=== PATIENT | male | born 1950 | race Caucasian/White ===

== ENCOUNTER → 2016-05-14 | Outpatient (CLI) | payer OTHER ==
[~2016-05-14] MED LIST: ALLER-EASE180 MG PO; AMLODIPINE BESY10 MG PO; ASPIRIN EC81 M1 PO; ATORVASTATIN CA40 MG PO; CARVEDILOL12.5 MG PO; COUMADIN 3 MG TA3 M1 PO; COZAAR 50 MG TA50 M2 PO; CYCLOBENZAPRINE10 MG PO; FISH OIL 1,0001 EAC5 PO; LASIX 40 MG TAB40 M1 PO; POTASSIUM CHLO20 ME1 PO; PRAVACHOL 20 MG20 M1 PO; TRAMADOL 50 MG50 MG PO; TYLENOL325 MG PO
== END ==
LOC: NUC 06:56 → RAD 06:56 → NUC 07:32
DX: I25.10 Atherosclerotic heart disease of native coronary artery without angina pectoris (principal); I42.9 Cardiomyopathy, unspecified

== ENCOUNTER → 2016-05-29 | Outpatient (CLI) | payer OTHER ==
[~2016-05-29] VITALS: Ht 177.8 cm; Wt 104.3 kg
[~2016-05-29] MED LIST changes: +CLARITIN10 MG PO; +COREG25 MG PO; +PACERONE 200 M200 M1 PO; +PULMICORT0.5 MG/22 INH
--- NOTE | ~2016-05-29 | CATHLAB ---
[facility] [employer] [place] [address] INVASIVE PROCEDURE REPORT Name: ALMA MERCEDES Room #: REG [facility]#: [id number] Admission: 05/29/16 Attend Phys: Pablo Darby MD Discharge: Date of : 54 Date of Service: 05/29/16 0846 Report #: [id number] THIS REPORT FOR: //name// CC: Pablo Garcia DATE OF SERVICE: 05/29/2016 INDICATIONS: Ventricular tachycardia/cardiomyopathy Full risks, benefits and alternatives of cardiac catheterization were explained to the patient. All questions were answered. Informed consent was obtained. The right groin area was prepped and draped in a sterile manner. Lidocaine was given subcutaneously. A 4-Citizen Of [place] sheath was inserted into the right femoral artery via modified Seldinger technique. CORONARY ANATOMY: 1. The left main artery is a large caliber vessel, with no flow-limiting lesions. 2. The LAD is a moderate to large size caliber vessel, traveling down the anterior wall and wrapping around the apex. There is only mild disease in the proximal segment, less than 20%. 3. There are 2 diagonal arteries, with no flow-limiting lesions. 4. The left circumflex artery is a moderate sized caliber vessel with mild disease in the mid segment, less than 20%. 5. There are 2 moderate sized obtuse marginal arteries, with no flow-limiting lesions. 6. The RCA is a dominant vessel, with a 100% occlusion in the proximal segment. This is unchanged from prior procedures. The distal RCA is filled via collateral circulation from the left coronary artery. 7. A left ventriculogram was performed revealing a dilated left ventricle with severe LV dysfunction, EF around 30-35%. There is severe hypokinesis of the inferior and apical regions. The LVEDP is 33 mmHg. There is no gradient across the outflow tract. IMPRESSION: 1. 100% occlusion of the right coronary artery with distal collaterals. Unchanged from prior procedures. 2. Mild disease in the left anterior descending and left circumflex artery. 3. Severe left ventricular dysfunction. 4. Continue with medical therapy. <ELECTRONICALLY SIGNED> By: Pablo Darby MD 05/30/16 0940 0846 1035 Pablo Darby MD /nt
[2016-05-29 07:12] VITALS: BP 128/67
[2016-05-29 07:42] LABS: HEMATOCRIT 40.7 % (42.0-52.0); HEMOGLOBIN 13.4 gm/dL (14.0-18.0); MCH 30.4 pg (26.0-34.0); MCHC 32.9 g/dL (28.0-37.0); MCV 92.5 fL (80.0-100.0); RBC 4.4 mil/uL (4.50-6.00); RDW 13.8 % (10.5-14.5); WBC 6.6 thou/uL (4.0-11.0)
[2016-05-29 07:50] LABS: CALCIUM 8.5 mg/dL (8.5-10.1); CREATININE 1.4 mg/dL (0.7-1.3); POTASSIUM 4.9 mmol/L (3.5-5.1)
[2016-05-29 08:03] LABS: INR 1.4; PROTIME 13.8 Seconds (9.3-11.4)
== END | disposition home or self-care (01) ==
LOC: CATH 06:25 → SPEC 12:56 → CATH 12:57
PROVIDERS: Internal Medicine Cardiovascular Disease
DX: I25.10 Atherosclerotic heart disease of native coronary artery without angina pectoris (principal); I25.5 Ischemic cardiomyopathy; I10 Essential (primary) hypertension; E78.5 Hyperlipidemia, unspecified; I25.2 Old myocardial infarction; I48.91 Unspecified atrial fibrillation; Z87.891 Personal history of nicotine dependence

== ENCOUNTER → 2016-12-25 | Outpatient (CLI) | payer OTHER | LOC: RAD 12:51 | DX: I51.7 Cardiomegaly (principal) ==

== ENCOUNTER → 2017-03-12 | Outpatient (CLI) | payer OTHER | LOC: ULTRA 08:16 | DX: K80.80 Other cholelithiasis without obstruction (principal); R94.5 Abnormal results of liver function studies; K76.0 Fatty (change of) liver, not elsewhere classified ==

== ENCOUNTER → 2017-09-09 | Outpatient (CLI) | payer OTHER ==
--- NOTE | ~2017-09-09 | 2DMMODE ---
[facility] [place] [address] 2 D/M-MODE ECHOCARDIOGRAM Name: ALMA MERCEDES Room #: REG [facility]#: [id number] Admission: 09/09/17 Attend Phys: Pablo Darby MD Discharge: Date of : 54 Date of Service: 09/09/17 1616 Report #: [id number] THIS REPORT FOR: //name// APPROVED REPORT Study performed: 09/09/2017 14:49:28 EXAM: Comprehensive 2D, Doppler, and color-flow Echocardiogram Patient Location: Out-Patient Status: routine BSA: 2.21 HR: 40 bpm BP: 172/92 mmHg Rhythm: Bradycardia Other Information Study Quality: Adequate Indications Ischemic cardiomyopathy. CAD, stents, pacemaker, HTN, HLP 2D Dimensions RVDd: 41.49 mm LVEF(%): 41.21 (>50%) IVSd: 10.74 (7-11mm) LVOT Diam: 24.46 (18-24mm) LVDd: 63.59 mm PWd: 10.86 (7-11mm) Ascending Ao: 35.87 (22-36mm) LVDs: 50.46 (25-40mm) Aortic Root: 36.24 mm Juarez's LVEF: 41.21 % Volumes Left Atrial Volume (Systole) Single Plane 4CH: 91.03 mL Single Plane 2CH: 116.67 mL LA ESV Index: 49.00 mL/m2 Aortic Valve AoV Peak Mino.: 1.65 m/s AO Peak Gr.: 10.95 mmHg LVOT Max P.85 mmHg LVOT Max V: 0.84 m/s KERWIN Vmax: 2.40 cm2 Mitral Valve E/A Ratio: 1.6 MV Decel. Time: 124.93 ms [facility] [place] [address] 2 D/M-MODE ECHOCARDIOGRAM Name: ALMA MERCEDES Room #: [facility]#: [id number] Admission: 09/09/17 Attend Phys: Pablo Darby MD Discharge: Date of : 54 Date of Service: 09/09/17 1616 Report #: [id number] MV E Max Mino.: 0.94 m/s MV A Mino.: 0.60 m/s MV PHT: 36.23 ms IVRT: 103.81 ms Pulmonary Valve PV Peak Mino.: 1.37 m/s PV Peak Gr.: 7.47 mmHg Pulmonary Vein P Vein S: 0.52 m/s P Vein D: 0.60 m/s P Vein S/D Ratio: 0.87 Tricuspid Valve TR Peak Mino.: 2.93 m/s RAP Estimate: 5.00 mmHg TR Peak Gr.: 34.31 mmHg PA Pressure: 39.00 mmHg Left Ventricle Left ventricle is mildly dilated. There is normal left ventricular wall thickness. Left ventricular systolic function is moderate to severely decreased. LVEF is 35%. Moderate diastolic dysfunction is present (pseudonormal filling). Right Ventricle Right ventricle is at the upper limits of normal. The right ventricular systolic function is normal. Pacemaker lead is present in the right ventricle. Atria Left atrium moderate to severely dilated. Right atrium is mildly dilated. Aortic Valve The Aortic valve is mildly sclerotic. Mild aortic regurgitation. There is no aortic valvular stenosis. Mitral Valve Mitral valve leaflets are mildly thickened. Moderate to severe mitral regurgitation Tricuspid Valve The tricuspid valve is normal in structure. Mild to moderate tricuspid regurgitation. Estimated PAP is 40mmHg. Pulmonic Valve [facility] [address] [place] [address] 2 D/M-MODE ECHOCARDIOGRAM Name: DARENALMA GAINES Room #: REG [facility].#: [id number] Admission: 09/09/17 Attend Phys: Pablo Darby MD Discharge: Date of : 54 Date of Service: 09/09/17 1616 Report #: [id number] The pulmonary valve is normal in structure. Trace pulmonic regurgitation. Great Vessels The aortic root is normal in size. The ascending aorta is normal in size. IVC is normal in size and collapses >50% with inspiration. Pericardium There is no pericardial effusion. <Conclusion> Left ventricle is mildly dilated. Left ventricular systolic function is moderate to severely decreased. Moderate diastolic dysfunction is present (pseudonormal filling). Right ventricle is at the upper limits of normal. Left atrium moderate to severely dilated. Mild aortic regurgitation. Moderate to severe mitral regurgitation Mild to moderate tricuspid regurgitation. Estimated PAP is 40mmHg. <ELECTRONICALLY SIGNED> By: Pablo Darby MD 09/09/17 1616 161 161 Pablo Darby MD /INF
== END ==
LOC: CV 10:59
DX: I08.3 Combined rheumatic disorders of mitral, aortic and tricuspid valves (principal); I10 Essential (primary) hypertension; I25.5 Ischemic cardiomyopathy; I25.10 Atherosclerotic heart disease of native coronary artery without angina pectoris; E78.5 Hyperlipidemia, unspecified; Z95.0 Presence of cardiac pacemaker; Z95.5 Presence of coronary angioplasty implant and graft

== ENCOUNTER → 2017-09-14 | Outpatient (CLI) | payer OTHER | LOC: RAD 10:01 | DX: I48.91 Unspecified atrial fibrillation (principal); I25.10 Atherosclerotic heart disease of native coronary artery without angina pectoris ==

== ENCOUNTER → 2017-10-05 | Outpatient (CLI) | payer OTHER | LOC: CAT 09:42 | DX: I49.9 Cardiac arrhythmia, unspecified (principal); R91.1 Solitary pulmonary nodule; I10 Essential (primary) hypertension; E78.5 Hyperlipidemia, unspecified; Z79.899 Other long term (current) drug therapy ==

== ENCOUNTER → 2018-03-28 | Outpatient (CLI) | payer OTHER | LOC: RAD 10:11 | DX: R06.00 Dyspnea, unspecified (principal) ==

== ENCOUNTER → 2018-10-10 | Outpatient (CLI) | payer OTHER ==
[~2018-10-10] MED LIST changes: +COUMADIN 2.5MG2.5 M1 PO
== END ==
LOC: ULTRA 09:58
DX: E05.90 Thyrotoxicosis, unspecified without thyrotoxic crisis or storm (principal); E04.9 Nontoxic goiter, unspecified

== ENCOUNTER → 2018-10-20 | Outpatient (CLI) | payer OTHER ==
--- NOTE | 2018-10-20 12:47 | 2DMMODE ---
[facility] [place] [address] 2 D/M-MODE ECHOCARDIOGRAM Name: ALMA MERCEDES Room #: REG [facility]#: [id number] Admission: 10/20/18 Attend Phys: Pablo Darby MD Discharge: Date of : 54 Date of Service: 10/20/18 1246 Report #: [id number] THIS REPORT FOR: //name// APPROVED REPORT Study performed: 10/20/2018 11:19:28 EXAM: Comprehensive 2D, Doppler, and color-flow Echocardiogram Patient Location: Out-Patient Status: routine BSA: 2.21 HR: 40 bpm BP: 130/82 mmHg Rhythm: Bradycardia Other Information Study Quality: Adequate Technically limited study due to obesity. Indications Cardiomyopathy Hx: CAD, stents, pacemaker 2D Dimensions RVDd: 40.19 mm IVSd: 11.80 (7-11mm) LVOT Diam: 23.65 (18-24mm) LVDd: 61.88 mm PWd: 9.76 (7-11mm) Ascending Ao: 37.61 (22-36mm) LVDs: 46.21 (25-40mm) Aortic Root: 36.37 mm Volumes Left Atrial Volume (Systole) Single Plane 4CH: 122.90 mL Single Plane 2CH: 109.84 mL LA ESV Index: 56.00 mL/m2 Aortic Valve AoV Peak Mino.: 1.80 m/s AO Peak Gr.: 12.94 mmHg LVOT Max P.81 mmHg LVOT Max V: 1.40 m/s KERWIN Vmax: 3.41 cm2 Mitral Valve [facility] [address] [place] [address] 2 D/M-MODE ECHOCARDIOGRAM Name: ALMA MERCEDES Room #: REG [facility]#: [id number] Admission: 10/20/18 Attend Phys: Pablo Darby MD Discharge: Date of : 54 Date of Service: 10/20/18 1246 Report #: [id number] E/A Ratio: 1.1 MV Decel. Time: 273.78 ms MV E Max Mino.: 0.72 m/s MV A Mion.: 0.65 m/s MV PHT: 79.40 ms IVRT: 83.04 ms Pulmonary Valve PV Peak Mino.: 0.92 m/s PV Peak Gr.: 3.41 mmHg Pulmonary Vein P Vein S: 0.60 m/s P Vein A: 0.26 m/s P Vein D: 0.66 m/s P Vein A Dur.: 145.3 msec P Vein S/D Ratio: 0.91 Tricuspid Valve TR Peak Mino.: 3.50 m/s RAP Estimate: 5.00 mmHg TR Peak Gr.: 49.00 mmHg PA Pressure: 54.00 mmHg Left Ventricle Left ventricle is mild to moderately dilated. Hypokinesis of the inferior wall There is normal left ventricular wall thickness. Left ventricular systolic function is moderately decreased. LVEF is 40%. Moderate diastolic dysfunction is present (pseudonormal filling). Right Ventricle The right ventricular systolic function is normal. Pacemaker lead is present in the right ventricle. Atria Left atrium is severely dilated. Right atrium is moderately dilated. Aortic Valve The aortic valve is normal in structure. Mild aortic regurgitation. There is no aortic valvular stenosis. Mitral Valve The mitral valve is normal in structure. Moderate to severe mitral regurgitation Tricuspid Valve The tricuspid valve is normal in structure. Moderate tricuspid regurgitation. Estimated PAP 55mmHg. [facility] [address] [place] [address] 2 D/M-MODE ECHOCARDIOGRAM Name: DARENALMA LIANA Room #: REG [facility]#: [id number] Admission: 10/20/18 Attend Phys: Pablo Darby MD Discharge: Date of : 54 Date of Service: 10/20/18 1246 Report #: [id number] Pulmonic Valve Pulmonic valve is not well visualized. Trace pulmonic regurgitation. Great Vessels The aortic root is normal in size. The ascending aorta is normal in size. IVC is normal in size and collapses >50% with inspiration. Pericardium There is no pericardial effusion. <Conclusion> Left ventricle is mild to moderately dilated. There is normal left ventricular wall thickness. Left ventricular systolic function is moderately decreased. Moderate diastolic dysfunction is present (pseudonormal filling). Pacemaker lead is present in the right ventricle. Left atrium is severely dilated. Right atrium is moderately dilated. Mild aortic regurgitation. Moderate to severe mitral regurgitation Moderate tricuspid regurgitation. Estimated PAP 55mmHg. <ELECTRONICALLY SIGNED> By: Pablo Darby MD 10/20/18 1246 1246 1246 Pablo Darby MD /INF
== END ==
LOC: CV 11:01
DX: I08.3 Combined rheumatic disorders of mitral, aortic and tricuspid valves (principal); I42.9 Cardiomyopathy, unspecified; I25.10 Atherosclerotic heart disease of native coronary artery without angina pectoris; Z95.0 Presence of cardiac pacemaker; Z95.5 Presence of coronary angioplasty implant and graft

== ENCOUNTER 2019-03-02 06:35 | Observation (INO) | payer OTHER ==
[~2019-03-02] VITALS: Ht 177.8 cm; Wt 102.0 kg
[2019-03-02 07:25] VITALS: BP 132/78
[2019-03-02 07:32] LABS: ABSOLUTE NEUTROPHILS 4.9 thou/uL (1.4-8.2); BASOPHILS 1.1 % (0.0-2.0); EOSINOPHILS 4.8 % (0.0-3.0); HEMATOCRIT 42.4 % (42.0-52.0); HEMOGLOBIN 13.5 gm/dL (14.0-18.0); LYMPHOCYTES 14.6 % (24.0-44.0); MCH 28.6 pg (26.0-34.0); MCHC 31.7 g/dL (28.0-37.0); MCV 90.1 fL (80.0-100.0); MONOCYTES 10.4 % (1.0-8.0); PLATELET COUNT 234 thou/uL (150-400); POLYS 69.1 % (36.0-66.0); RBC 4.71 mil/uL (4.50-6.00); RDW 17.7 % (10.5-14.5); WBC 7.1 thou/uL (4.0-11.0)
[2019-03-02 07:35] LABS: CALCIUM 9.6 mg/dL (8.5-10.1); CREATININE 1.5 mg/dL (0.7-1.3)
[2019-03-02 07:36] LABS: INR 1.3; PROTIME 13.8 Seconds (9.3-11.4)
[2019-03-02 07:41] LABS: ALBUMIN 3.5 g/dL (3.4-5.0); TOTAL BILIRUBIN 0.6 mg/dL (<0.1-1.0); TOTAL PROTEIN 7.8 g/dL (6.4-8.2)
[2019-03-02] MEDS ORDERED: TAPAZOLE10 MG PO (07:47)
[2019-03-02 14:10] VITALS: BP 149/99
--- NOTE | 2019-03-02 15:20 | NUR ---
PT ARRIVED ON UNIT AT APPROX 1400 FROM ICD PLACEMENT. LEFT SHOULDER INCISION CLOSED WITH GLUE. SITE IS RAISED AND PINK, NO DRAINAGE. NO C/O PAIN AT THIS TIME. ADMISSION ORDERS AND INSTRUCTIONS COMPLETE.
--- NOTE | 2019-03-02 17:31 | P ---
[facility] [place] [address] PROCEDURE REPORT Name: ALMA MERCEDES Room #: 219-P [facility] M.R.#: [id number] Admission: 03/02/19 Attend Phys: Gumaro De Anda MD Discharge: Date of : 54 Report #: [id number] THIS REPORT FOR: //name// CC: Manjinder De Anda DATE OF SERVICE: 03/02/2019 UPGRADE TO BIV ICD PREOPERATIVE DIAGNOSES: 1. Ischemic cardiomyopathy. 2. Sick sinus syndrome. POSTOPERATIVE DIAGNOSES: 1. Ischemic cardiomyopathy. 2. Sick sinus syndrome. HISTORY: The patient is a 68-year-old male with a history of ischemic cardiomyopathy as well as symptomatic bradycardia with chronic RV pacing, here for upgrade to a BiV ICD. ANESTHESIA: The patient underwent MAC anesthesia with no anesthesia related complications. DESCRIPTION OF PROCEDURE: The patient underwent informed consent. We discussed the details of the procedure including the risks, which included but not limited to bleeding, infection, vascular damage, cardiac perforation, pneumothorax. He understood these risks and was willing to proceed. As such, the patient was brought to the EP laboratory in a fasting and sedated state. He was prepped and draped in a sterile fashion. He received IV antibiotics and underwent a venogram showing patency of the left axillary vein. Next, I injected lidocaine at the old incision site. The incision was made. The chronic pocket was entered. I made some additional room in the pocket for the new device. I then obtained access to the left axillary vein x 2. The patient appeared to have a valve in the left subclavian vein and therefore, I was able to cross initially with a Glidewire and then the second access, I was able to gain access to the venous system with a standard J-tipped wire. Next, an atrial lead was positioned in right atrial appendage with adequate pacing and sensing thresholds. The lead was sutured to the prepectoral fascia using Ethibond. Next, a coronary sinus guide sheath was placed into the right atrium and quickly obtained access to the coronary sinus. A formal coronary venogram was performed using a balloon, which showed that he had no targets on his coronary sinus, other than a middle cardiac vein. Fortunately, this was easy to obtain access to and a lead was positioned into the distal aspect of this [facility] [address] [place] [address] PROCEDURE REPORT Name: ALMA MERCEDES Room #: 219-P [facility] Moi Paz#: [id number] Admission: 03/02/19 Attend Phys: Gumaro De Anda MD Discharge: Date of : 54 Report #: [id number] vessel. I could advance a wire retrograde all the way back to the coronary sinus proper. However, I could not advance the lead much more than the lateral silhouette of the left ventricle. At this location, there was one good pacing figuration with adequate thresholds. However, other pacing thresholds were quite high and unfortunately this was his only option is a vessel. If this lead were to not work in the future, I really think his only option would be an epicardial lead. As such, the sheath was split. The lead remained in stable position. The lead was sutured to the prepectoral fascia. Old device was disconnected and the leads were connected to the new [employer] biventricular ICD. A Medtronic TYRX antibiotic pouch was placed in the pocket, given the patient's high risk for infection. The pocket was irrigated with vancomycin and the pocket was closed in 2 layers using 2-0 for the deep layer, 3-0 for the middle layer and surgical glue was placed to the outer skin layer. The patient awoke neurologically and hemodynamically intact. No complications and no significant bleeding. The explanted device was a [employer], model #E140, serial #[id number] originally implanted on 12/13/2013. His old ICD lead was a [employer], model #0296, serial #[id number], also implanted on 12/13/2013. His newly implanted defibrillator was a [employer] Quadra Assura MP, model #125142I, serial #[id number]. The atrial lead was a [employer] model #2088TC, 52 cm, serial #[id number]. The left ventricular lead was a [employer] model #1458Q, serial #[id number]. The atrial lead was demonstrated a P-wave of 4.5 millivolts, pacing impedance of 510 ohms and a pacing threshold of 0.75 volts at 0.5 milliseconds. The RV lead demonstrated R-wave of 4.9 millivolts, pacing impedance of 350 ohms, pacing threshold of 1 volt at 0.5 milliseconds and the LV lead demonstrated a pacing impedance of 830 ohms with a pacing threshold of 2.25 volts at 1 millisecond. The device was programmed to the DDDR 60-130 mode. CONCLUSIONS: 1. Successful upgrade to a biventricular ICD. 2. Satisfactory atrial, right ventricular and left ventricular pacing and sensing thresholds. 3. Very limited coronary sinus targets with the only viable option with being this middle cardiac vein where the lead was positioned. <ELECTRONICALLY SIGNED> By: Gumaro De Anda MD 03/02/19 1731 1140 1243 Gumaro De Anda MD /cooper
--- NOTE | 2019-03-02 17:46 | NUR ---
PT CONTINUES TO DO WELL. NO C/O PAIN OR SOA. PT ON BEDREST WITH L ARM SLING IN PLACE. PLAN TO DC TOMORROW AFTER CXR AND DEVICE CHECK. WILL CONTINUE TO MONITOR AND FOLLOW POC.
[2019-03-02 19:38] VITALS: BP 138/85
[2019-03-03 00:16] VITALS: BP 132/88
[2019-03-03 04:41] VITALS: BP 126/86
--- NOTE | 2019-03-03 05:35 | NUR ---
ASSESSMENT DOCUMENTED.PT BEEN RESTING IN NO ACUTE DISTRESS.VSS.A-PACED ON MONITOR.S/P PACEMAKER/ICD PLACEMENT,INCISION INTACT.IMMOBILIZER IN PLACE.VOIDS VIA URINAL.POC IS TO DISCHARGE TO HOME TODAY..PT DENIES ANY CONCERNS AT THIS TIME.
[2019-03-03 08:00] VITALS: BP 130/79
[2019-03-03 12:15] VITALS: BP 130/79
--- NOTE | 2019-03-03 13:29 | D ---
[facility] [place] [address] DISCHARGE SUMMARY Name: ALMA MERCEDES Room #: 219-P [facility] M.R.#: [id number] Admission: 03/02/19 Attend Phys: Gumaro De Anda MD Discharge: 03/03/19 Date of : 54 Report #: [id number] THIS REPORT FOR: //name// CC: Manjinder De Anda PREOPERATIVE DIAGNOSES: 1. Ischemic cardiomyopathy. 2. Ventricular tachycardia. 3. Symptomatic bradycardia. PROCEDURES PERFORMED: Upgrade to a biventricular ICD. HISTORY: The patient is a 68-year-old male with a history of coronary artery disease, status post NH with an ischemic cardiomyopathy, status post ICD implantation, who also has history of recurrent ventricular arrhythmias on amiodarone therapy. The patient has had worsening bradycardia with chronic RV pacing. He is here for upgrade to a biventricular ICD. The procedure was successful. The patient did have poor coronary sinus targets. The only vessel that was viable was a middle cardiac vein. Unfortunately, this had a decent pacing and sensing thresholds. HOSPITAL COURSE: The patient was monitored in the CCU overnight, he did well. On the day of discharge, he denied any chest pain, shortness of breath, fevers or chills. PHYSICAL EXAMINATION: GENERAL: No acute distress. HEENT: Oropharynx clear. NECK: Supple, no thyromegaly. HEART: Regular rate and rhythm with no murmurs, rubs or gallops. LUNGS: Clear to auscultation bilaterally. ABDOMEN: Soft, nontender, nondistended and his incision was healing nicely with no significant bruising and no hematoma. A device interrogation was performed and showed that the pacing thresholds were in fact improved compared to implant. A chest x-ray was performed and was within normal limits. As such, he was deemed stable for discharge home. He will continue with his same home medications. He will resume his warfarin on Wednesday. I will see him in clinic next week for a site check. <ELECTRONICALLY SIGNED> By: Gumaro De Anda MD 03/03/19 1329 0840 0856 Gumaro De Anda MD /nt
[2019-03-03 13:52] VITALS: BP 130/79
--- NOTE | 2019-03-03 13:56 | NUR ---
ASSUMED CARE OF PT AT SHIFT CHANGE. ASSESSMENT AT CHARTED. MEDS GIVEN PER APR. VSS. NO C/O PAIN. INCISION SITE SHOWS NO CHANGE FROM PREVIOUS SHIFT, NO DRAINAGE OR EDEMA. DISCHARGE ORDERS AND INSTRUCTIONS COMPLETE. TELE AND IV DC'D. THIS NURSE WALKED PT TO [facility] DOOR TO WAITING FRIEND AND CAR.
== END 2019-03-03 13:10 | disposition home or self-care (01) ==
LOC: CATH 06:35 → 2N 13:51 → CATH 19:22 → 2N 03-03 13:10
PROVIDERS: ADMIT Internal Medicine Cardiovascular Disease
DX: I49.5 Sick sinus syndrome (principal); I25.5 Ischemic cardiomyopathy; I25.2 Old myocardial infarction; I50.812 Chronic right heart failure; I11.0 Hypertensive heart disease with heart failure; E78.5 Hyperlipidemia, unspecified; I25.10 Atherosclerotic heart disease of native coronary artery without angina pectoris; I48.91 Unspecified atrial fibrillation; Z87.891 Personal history of nicotine dependence

== ENCOUNTER → 2019-03-09 | Outpatient (CLI) | payer OTHER ==
[~2019-03-09] MED LIST changes: +TAPAZOLE10 MG PO
== END ==
LOC: SJCVC 13:05
DX: Z45.02 Encounter for adjustment and management of automatic implantable cardiac defibrillator (principal); I48.91 Unspecified atrial fibrillation; I25.5 Ischemic cardiomyopathy; Z95.810 Presence of automatic (implantable) cardiac defibrillator

== ENCOUNTER → 2019-03-17 | Outpatient (CLI) | payer OTHER | LOC: SJCVC 14:30 | DX: Z51.81 Encounter for therapeutic drug level monitoring (principal); I48.0 Paroxysmal atrial fibrillation; J43.9 Emphysema, unspecified; I25.10 Atherosclerotic heart disease of native coronary artery without angina pectoris; I10 Essential (primary) hypertension; I42.9 Cardiomyopathy, unspecified; E78.00 Pure hypercholesterolemia, unspecified; Z79.01 Long term (current) use of anticoagulants; Z95.810 Presence of automatic (implantable) cardiac defibrillator ==

== ENCOUNTER → 2019-03-31 | Outpatient (CLI) | payer OTHER | LOC: SJCVC 14:29 | DX: Z51.81 Encounter for therapeutic drug level monitoring (principal); I48.0 Paroxysmal atrial fibrillation; I25.10 Atherosclerotic heart disease of native coronary artery without angina pectoris; I10 Essential (primary) hypertension; E78.00 Pure hypercholesterolemia, unspecified; J43.9 Emphysema, unspecified; E66.09 Other obesity due to excess calories; Z68.32 Body mass index [BMI] 32.0-32.9, adult; Z95.810 Presence of automatic (implantable) cardiac defibrillator; Z79.01 Long term (current) use of anticoagulants ==

== ENCOUNTER → 2019-04-20 | Outpatient (CLI) | payer OTHER | LOC: SJCVC 10:32 | DX: I21.19 ST elevation (STEMI) myocardial infarction involving other coronary artery of inferior wall (principal); R94.31 Abnormal electrocardiogram [ECG] [EKG]; I48.0 Paroxysmal atrial fibrillation; I25.10 Atherosclerotic heart disease of native coronary artery without angina pectoris; I42.9 Cardiomyopathy, unspecified; I47.2 Ventricular tachycardia; I10 Essential (primary) hypertension; J43.9 Emphysema, unspecified; I25.2 Old myocardial infarction; Z79.82 Long term (current) use of aspirin; Z79.899 Other long term (current) drug therapy; Z79.01 Long term (current) use of anticoagulants; Z87.891 Personal history of nicotine dependence; Z95.810 Presence of automatic (implantable) cardiac defibrillator ==

== ENCOUNTER → 2019-06-01 | Outpatient (CLI) | payer OTHER | LOC: SJCVC 14:51 | DX: I21.19 ST elevation (STEMI) myocardial infarction involving other coronary artery of inferior wall (principal); R94.31 Abnormal electrocardiogram [ECG] [EKG]; I25.5 Ischemic cardiomyopathy; I47.2 Ventricular tachycardia; Z95.810 Presence of automatic (implantable) cardiac defibrillator ==

== ENCOUNTER → 2019-06-29 | Outpatient (CLI) | payer OTHER | LOC: SJCVC 11:10 | DX: Z51.81 Encounter for therapeutic drug level monitoring (principal); I48.0 Paroxysmal atrial fibrillation; I25.10 Atherosclerotic heart disease of native coronary artery without angina pectoris; I10 Essential (primary) hypertension; J44.9 Chronic obstructive pulmonary disease, unspecified; E78.00 Pure hypercholesterolemia, unspecified; Z95.810 Presence of automatic (implantable) cardiac defibrillator; Z79.01 Long term (current) use of anticoagulants; Z79.82 Long term (current) use of aspirin; Z79.899 Other long term (current) drug therapy ==

== ENCOUNTER → 2019-07-20 | Outpatient (CLI) | payer OTHER ==
[~2019-07-20] VITALS: Ht 177.8 cm; Wt 99.8 kg
[~2019-07-20] MED LIST changes: +AZELASTINE205.5 MCG/ NARES; +COUMADIN 1MG TAB1 M1 PO; +FLONASE 0.05%50 MCG NARES; +PRINIVIL20 M1 PO
--- NOTE | 2019-07-24 13:09 | PATH ---
[facility] [address] [place] [address] PATHOLOGY RPT PROCEDURE Name: DARENSANJIV GAINES Room #: REG [facility] Isadora.#: [id number] Admission: 07/20/19 Date of : 54 Discharge: Report #: [id number] Path Case #: [id number] [facility] Accession Number: [id number] . 01 Material submitted: . PART A: cecum - POLYP AT CECUM PART B: colon - POLYP AT MID-ASCENDING COLON. Modifiers: mid, ascending PART C: hepatic flexure - POLYP AT HEPATIC FLEXURE PART D: colon - POLYP AT MID-TRANSVERSE. Modifiers: mid, transverse PART E: colon - POLYP AT 70CM PART F: colon - POLYP AT 50CM PART G: colon - POLYP AT 40CM PART H: colon - POLYP AT 35CM X2 PART I: colon - POLYP AT 30CM PART J: colon - POLYP AT 25CM . 01 Clinical history: . positive cola-guard . 02 Diagnosis: A. Large bowel "polyp at cecum", endoscopic biopsy: - Tubular adenoma; negative for high grade dysplasia and malignancy. . B. Large bowel "polyp at mid ascending colon", endoscopic biopsy: - Tubular adenoma; negative for high grade dysplasia and malignancy. . C. Large bowel "polyp at hepatic flexure", endoscopic biopsy: - Tubular adenoma; negative for high grade dysplasia and malignancy. . D. Large bowel "polyp at mid transverse", endoscopic biopsy: - Tubular adenoma; negative for high grade dysplasia and malignancy. . E. Large bowel "polyp at 70 cm", endoscopic biopsy: - Tubular adenoma; negative for high grade dysplasia and malignancy. . F. Large bowel "polyp at 50 cm", endoscopic biopsy: - Tubular adenoma; negative for high grade dysplasia and malignancy. . G. Large bowel "polyp at 40 cm ", endoscopic biopsy: - Tubular adenoma; negative for high grade dysplasia and malignancy. . H. Large bowel "polyp at 35 cm x 2", endoscopic biopsy: - Tubular adenoma; negative for high grade dysplasia and malignancy. . I. Large bowel "polyp at 30 cm", endoscopic biopsy: - Tubular adenoma; negative for high grade dysplasia and malignancy. . J. Large bowel "polyp at 25 cm", endoscopic biopsy: [facility] [address] [place] [address] PATHOLOGY RPT PROCEDURE Name: SANJIV RODRÍGUEZ Room #: REG CLI Lam.#: [id number] Admission: 07/20/19 Date of : 54 Discharge: Report #: [id number] Path Case #: [id number] - Tubular adenoma; negative for high grade dysplasia and malignancy. (TRACEY/brittny; 07/21/2019) LBQ 07/24/2019 1258 Local . 02 Electronically signed: . Priyanka Brown MD, Pathologist NPI- [id number] . 01 Gross description: . A. The specimen is received in formalin labeled "Rice, Sanjiv, polyp at cecum" and consists of multiple fragments of valdes tissue measuring 1.0 x 0.7 x 0.2 cm in aggregate which are entirely submitted in A1. . B. The specimen is received in formalin labeled "Rice, Sanjiv, polyp at mid ascending colon" and consists of multiple fragments of valdes tissue measuring 1.4 x 0.3 x 0.2 cm in aggregate which are entirely submitted in B1. . C. The specimen is received in formalin labeled "Rice, Sanjiv, polyp at hepatic flexure" and consists of a fragment of valdes tissue measuring 0.3 x 0.3 x 0.3 cm which is entirely submitted in C1. . D. The specimen is received in formalin labeled "Rice, Sanjiv, polyp at mid transverse" and consists of a polypoid segment of pink-valdes tissue measuring 1.3 x 0.7 x 0.3 cm which is entirely submitted in D1. . E. The specimen is received in formalin labeled "Rice, Sanjiv, polyp at 70 cm" and consists of a fragment of valdes tissue measuring 0.4 x 0.3 x 0.3 cm which is entirely submitted in E1. . F. The specimen is received in formalin labeled "Rice, Sanjiv, polyp at 50 cm" and consists of a fragment of valdes tissue measuring 0.5 x 0.3 x 0.3 which is entirely submitted in F1. . G. The specimen is received in formalin labeled "Rice, Sanjiv, polyp at 40 cm" and consists of multiple fragments of pink-valdes tissue measuring 0.6 x 0.2 x 0.2 cm which are entirely submitted in G1. . H. The specimen is received in formalin labeled "Rice, Sanjiv, polyp at 35 cm" and consists of fragments of pink-valdes tissue measuring 1.5 x 0.7 x 0.2 cm in aggregate which are entirely submitted in H1. . I. The specimen is received in formalin labeled "Rice, Sanjiv, polyp at 30 cm" and consists of a polypoid segment of pink-valdes tissue measuring 1.2 x 0.6 x 0.4 cm which is entirely submitted in I1. . J. The specimen is received in formalin labeled "Sanjiv Rodríguez, polyp at [address] [address] PATHOLOGY RPT PROCEDURE Name: SANJIV RODRÍGUEZ LIANA Room #: REG [facility].#: [id number] Admission: 07/20/19 Date of : 54 Discharge: Report #: [id number] Path Case #: [id number] 25 cm" and consists of a polypoid segment of pink-valdes tissue measuring 1.1 x 0.7 x 0.6 cm. The margin is inked. It is bisected and entirely submitted in J1. ([facility]; 07/20/2019) JFQ/JFQ 07/21/2019 0931 Local . 02 Pathologist provided ICD-10: D12.0, D12.2, D12.3, D12.6 . 02 CPT . 696606, 971490, 403908, 074758, 606419, 202913, 624659, 237329, 143783, 629028 Specimen Comment: A courtesy copy of this report has been sent to [phone], [phone] Specimen Comment: [id number] Specimen Comment: Report sent to / DR GIVENS Performed at: [address], [place], [place] [id number] MD Jonatan Olivares MD Phone: [phone] Performed at: [address] [id number] MD Silvia Tapia MD Phone: [phone]
--- NOTE | 2019-07-26 17:52 | P ---
[facility] [place] [address] PROCEDURE REPORT Name: ALMA MERCEDES Room #: REG [facility].#: [id number] Admission: 07/20/19 Attend Phys: Woo Sanabria MD Discharge: Date of : 54 Report #: [id number] THIS REPORT FOR: cc: Manjinder Del Castillo David J. DO Thesing, John A. MD ~ CC: Manjinder Young OUTPATIENT COLONOSCOPY REPORT BRIEF HISTORY: The patient is a 68-year-old male who was recently found to have a positive Cologuard test, who presents for his first colonoscopy. PREOPERATIVE DIAGNOSIS: Positive Cologuard. POSTOPERATIVE DIAGNOSES: 1. Multiple colon polyps. 2. Moderately severe sigmoid diverticulosis coli. MEDICATIONS: Deep sedation with propofol per anesthesia. SPECIMENS: 1. A 5 mm flat polyp, cecum. 2. A 5-6 mm sessile polyp, mid ascending colon. 3. Diminutive polyp, hepatic flexure. 4. Polyp, mid transverse colon. 5. Polyp at 70 cm. 6. Polyp at 50 cm. 7. Polyp at 40 cm. 8. Polyps x 2 at 35 cm. 9. Polyp at 30 cm. 10. Polyp at 25 cm. ESTIMATED BLOOD LOSS: 10 mL. PROCEDURE: Colonoscopy to cecum and terminal ileum with snare polypectomy, biopsy and placement of hemostatic clips on polypectomy site. FINDINGS: Prior to propofol sedation, procedure of colonoscopy discussed with the patient as well as potential risks and its complications. He indicates he understands and desires to proceed. DESCRIPTION OF PROCEDURE: With the patient in left lateral decubitus position, digital examination was completed, which revealed no abnormalities. Subsequently, the Olympus video colonoscope was introduced into the rectum, [facility] [address] [place] [address] PROCEDURE REPORT Name: DARENALMA LIANA Room #: REG [facility].#: [id number] Admission: 07/20/19 Attend Phys: Woo Sanabria MD Discharge: Date of : 54 Report #: [id number] advanced under direct vision to the cecum. Done with minimal difficulty. The cecum was identified by the ileocecal valve and the appendiceal orifice. I was able to visualize the distal segment of terminal ileum, which was inspected and noted to be unremarkable. At that point, the scope was slowly withdrawn and careful circumferential views obtained. Upon slow withdrawal of the scope, the prep was good. The mucosa was within normal limits, normal vascular pattern, normal light reflex. As we withdrew the scope, a number of polyps were identified. In the cecum, there was a flat 5 mm polyp removed by cold snare polypectomy. In the mid ascending colon, a 5-7 mm sessile polyp was seen and removed by cold snare polypectomy and also biopsy forceps were used to clean up the site. At the hepatic flexure, a diminutive polyp was seen and removed with biopsy forceps. As we withdrew the scope, he was found to have a 6-8 mm sessile polyp in the mid transverse colon removed by cold snare polypectomy and recovered. No additional abnormalities were noted until about 70 cm, at which point, another polyp was seen in the range of about 7-8 mm. This was removed by cold snare polypectomy as well. At 50 cm, a 5 mm sessile polyp was seen and removed by cold snare polypectomy and recovered. At 40 cm, another similar size centimeter was removed by cold snare polypectomy and recovered. At 35 cm, there were 2 polyps. One was about 5-7 cm, the other was about 1 cm. Both removed by cold snare polypectomy. Cold snare polypectomy was done as the patient does have a defibrillator. However, due to the larger size of the second polyp at 35 cm in the range of about 1 cm, a hemostatic clip was placed on the polypectomy site with good results. At 30 cm, an 8-10 mm polyp on a short stalk was seen and removed by cold snare polypectomy as well without difficulty. Again, a hemostatic clip was placed on this site with good results. At 25 cm, a 10-12 mm polyp on a short stalk was seen and removed by cold snare polypectomy. Again, due to its size, a hemostatic clip was placed as well. There was some oozing initially after removing the polyp, but it completely abated with a single hemostatic clip. Scope was further withdrawn and no additional abnormalities were seen. I might point out that he has moderately severe diverticular disease without endoscopic evidence of diverticulitis. Scope was withdrawn in the rectum, no abnormalities were seen. Upon retroflexion, no abnormalities were seen. Scope was withdrawn. The patient tolerated the procedure well. CONDITION OF THE PATIENT UPON DISCHARGE: Following procedure, the patient drowsy, aroused, conversant and will be discharged home when fully ambulatory. INSTRUCTIONS TO THE PATIENT AND FAMILY AT THE TIME OF DISCHARGE: The patient had a positive Cologuard and had 11 polyps removed today. Most, if not all of them, appear adenomatous. We will follow up on the path. However, due to the large number of polyps, I suggest followup colonoscopy in 2 years. The patient has a defibrillator in place. We were able to successfully remove the polyps by cold snare polypectomy. Hemostatic clips were placed on the larger polypectomy sites. We will have him resume his anticoagulation in about [address] [place] [address] PROCEDURE REPORT Name: ALMA MERCEDES [id number] Admission: 07/20/19 Attend Phys: Woo Sanabria MD Discharge: Date of : 54 Report #: [id number] 48 hours. He should call if he develops any rectal bleeding. He will otherwise return to the care of Dr. Manjinder del castillo. <ELECTRONICALLY SIGNED> By: Woo Sanabria MD 07/26/19 1752 1036 1055 Woo Sanabria MD /nt
== END | disposition home or self-care (01) ==
LOC: GI 08:09
PROVIDERS: ATTEND Specialist
DX: R19.5 Other fecal abnormalities (principal); K57.30 Diverticulosis of large intestine without perforation or abscess without bleeding; D12.0 Benign neoplasm of cecum; D12.2 Benign neoplasm of ascending colon; D12.3 Benign neoplasm of transverse colon; D12.4 Benign neoplasm of descending colon; D12.5 Benign neoplasm of sigmoid colon; I10 Essential (primary) hypertension; I48.91 Unspecified atrial fibrillation; E78.00 Pure hypercholesterolemia, unspecified; I25.2 Old myocardial infarction; I42.9 Cardiomyopathy, unspecified; J43.9 Emphysema, unspecified; Z98.890 Other specified postprocedural states; Z79.899 Other long term (current) drug therapy; Z11.59 Encounter for screening for other viral diseases; Z79.01 Long term (current) use of anticoagulants; Z95.0 Presence of cardiac pacemaker
CPT/HCPCS: 62110; 62900

== ENCOUNTER → 2019-07-27 | Outpatient (CLI) | payer OTHER | LOC: SJCVC 10:26 | PROVIDERS: ATTEND Internal Medicine Cardiovascular Disease | DX: Z51.81 Encounter for therapeutic drug level monitoring (principal); I48.0 Paroxysmal atrial fibrillation; J43.9 Emphysema, unspecified; I10 Essential (primary) hypertension; I25.10 Atherosclerotic heart disease of native coronary artery without angina pectoris; E78.00 Pure hypercholesterolemia, unspecified; Z68.32 Body mass index [BMI] 32.0-32.9, adult; Z79.01 Long term (current) use of anticoagulants ==

== ENCOUNTER → 2019-08-24 | Outpatient (CLI) | payer OTHER | LOC: SJCVC 10:21 | PROVIDERS: ATTEND Internal Medicine Cardiovascular Disease | DX: Z51.81 Encounter for therapeutic drug level monitoring (principal); I48.0 Paroxysmal atrial fibrillation; J43.9 Emphysema, unspecified; I25.10 Atherosclerotic heart disease of native coronary artery without angina pectoris; E78.00 Pure hypercholesterolemia, unspecified; Z68.32 Body mass index [BMI] 32.0-32.9, adult; Z79.01 Long term (current) use of anticoagulants ==

== ENCOUNTER → 2019-09-21 | Outpatient (CLI) | payer OTHER | LOC: SJCVC 11:33 | PROVIDERS: ATTEND Internal Medicine Cardiovascular Disease | DX: Z51.81 Encounter for therapeutic drug level monitoring (principal); I48.0 Paroxysmal atrial fibrillation; J43.9 Emphysema, unspecified; I10 Essential (primary) hypertension; I42.9 Cardiomyopathy, unspecified; I25.10 Atherosclerotic heart disease of native coronary artery without angina pectoris; E78.5 Hyperlipidemia, unspecified; Z68.32 Body mass index [BMI] 32.0-32.9, adult; Z79.01 Long term (current) use of anticoagulants; Z79.899 Other long term (current) drug therapy ==

== ENCOUNTER → 2019-10-24 | Outpatient (CLI) | payer OTHER | LOC: SJCVCIMAG 10:12 | PROVIDERS: ATTEND Internal Medicine Cardiovascular Disease | DX: I08.1 Rheumatic disorders of both mitral and tricuspid valves (principal); I11.9 Hypertensive heart disease without heart failure; R94.31 Abnormal electrocardiogram [ECG] [EKG]; I25.5 Ischemic cardiomyopathy; I48.0 Paroxysmal atrial fibrillation; I25.10 Atherosclerotic heart disease of native coronary artery without angina pectoris; Z95.810 Presence of automatic (implantable) cardiac defibrillator; Z79.01 Long term (current) use of anticoagulants; Z79.899 Other long term (current) drug therapy; Z87.891 Personal history of nicotine dependence ==

== ENCOUNTER → 2019-11-23 | Outpatient (CLI) | payer OTHER | LOC: SJCVC 14:11 | PROVIDERS: ATTEND Internal Medicine Cardiovascular Disease | DX: Z51.81 Encounter for therapeutic drug level monitoring (principal); I25.10 Atherosclerotic heart disease of native coronary artery without angina pectoris; I10 Essential (primary) hypertension; I48.0 Paroxysmal atrial fibrillation; E78.00 Pure hypercholesterolemia, unspecified; Z68.32 Body mass index [BMI] 32.0-32.9, adult; Z79.01 Long term (current) use of anticoagulants; Z79.899 Other long term (current) drug therapy ==

== ENCOUNTER → 2019-11-30 | Outpatient (CLI) | payer OTHER | LOC: SJCVC 09:56 | PROVIDERS: ATTEND Internal Medicine Cardiovascular Disease | DX: Z51.81 Encounter for therapeutic drug level monitoring (principal); I48.0 Paroxysmal atrial fibrillation; J44.9 Chronic obstructive pulmonary disease, unspecified; I25.10 Atherosclerotic heart disease of native coronary artery without angina pectoris; I10 Essential (primary) hypertension; I42.9 Cardiomyopathy, unspecified; Z68.32 Body mass index [BMI] 32.0-32.9, adult; Z79.01 Long term (current) use of anticoagulants; Z79.899 Other long term (current) drug therapy; Z86.711 Personal history of pulmonary embolism ==

== ENCOUNTER → 2019-12-07 | Outpatient (CLI) | payer OTHER | LOC: SJCVC 10:08 | PROVIDERS: ATTEND Internal Medicine Cardiovascular Disease | DX: Z51.81 Encounter for therapeutic drug level monitoring (principal); I48.91 Unspecified atrial fibrillation; Z79.01 Long term (current) use of anticoagulants ==

== ENCOUNTER → 2019-12-21 | Outpatient (CLI) | payer OTHER | LOC: SJCVC 09:52 | PROVIDERS: ATTEND Internal Medicine Cardiovascular Disease | DX: Z51.81 Encounter for therapeutic drug level monitoring (principal); I48.91 Unspecified atrial fibrillation; Z79.01 Long term (current) use of anticoagulants; Z79.899 Other long term (current) drug therapy ==

== ENCOUNTER → 2020-01-04 | Outpatient (CLI) | payer OTHER | LOC: SJCVC 10:00 | PROVIDERS: ATTEND Internal Medicine Cardiovascular Disease | DX: Z51.81 Encounter for therapeutic drug level monitoring (principal); E78.00 Pure hypercholesterolemia, unspecified; J43.9 Emphysema, unspecified; I10 Essential (primary) hypertension; I42.9 Cardiomyopathy, unspecified; I48.0 Paroxysmal atrial fibrillation; Z68.32 Body mass index [BMI] 32.0-32.9, adult; Z79.01 Long term (current) use of anticoagulants; Z79.899 Other long term (current) drug therapy ==

== ENCOUNTER → 2020-01-18 | Outpatient (CLI) | payer OTHER | LOC: SJCVC 11:36 | PROVIDERS: ATTEND Internal Medicine Cardiovascular Disease | DX: Z51.81 Encounter for therapeutic drug level monitoring (principal); I48.0 Paroxysmal atrial fibrillation; I25.10 Atherosclerotic heart disease of native coronary artery without angina pectoris; J43.9 Emphysema, unspecified; I10 Essential (primary) hypertension; I42.9 Cardiomyopathy, unspecified; E78.00 Pure hypercholesterolemia, unspecified; E66.9 Obesity, unspecified; Z95.810 Presence of automatic (implantable) cardiac defibrillator; Z79.01 Long term (current) use of anticoagulants; Z79.899 Other long term (current) drug therapy ==

== ENCOUNTER → 2020-01-25 | Outpatient (CLI) | payer OTHER | LOC: SJCVC 09:55 | PROVIDERS: ATTEND Internal Medicine Cardiovascular Disease | DX: Z51.81 Encounter for therapeutic drug level monitoring (principal); Z79.01 Long term (current) use of anticoagulants ==

== ENCOUNTER → 2020-02-01 | Outpatient (CLI) | payer OTHER | LOC: SJCVC 10:03 | PROVIDERS: ATTEND Internal Medicine Cardiovascular Disease | DX: Z51.81 Encounter for therapeutic drug level monitoring (principal); I48.91 Unspecified atrial fibrillation; Z79.01 Long term (current) use of anticoagulants; Z79.899 Other long term (current) drug therapy ==

== ENCOUNTER → 2020-02-22 | Outpatient (CLI) | payer OTHER | LOC: SJCVC 16:22 | PROVIDERS: ATTEND Internal Medicine Cardiovascular Disease | DX: Z51.81 Encounter for therapeutic drug level monitoring (principal); I48.0 Paroxysmal atrial fibrillation; J43.9 Emphysema, unspecified; I25.10 Atherosclerotic heart disease of native coronary artery without angina pectoris; I10 Essential (primary) hypertension; I25.5 Ischemic cardiomyopathy; E78.00 Pure hypercholesterolemia, unspecified; Z95.810 Presence of automatic (implantable) cardiac defibrillator; Z68.32 Body mass index [BMI] 32.0-32.9, adult; Z79.82 Long term (current) use of aspirin; Z79.01 Long term (current) use of anticoagulants; Z79.899 Other long term (current) drug therapy ==

== ENCOUNTER → 2020-03-07 | Outpatient (CLI) | payer OTHER ==
[~2020-03-07] MED LIST changes: +3-DAY VAGINAL C21 GM TOP; +ASA81BEC PO; +JANTOVEN1 MG PO; +LEVO-T100 MCG PO; +SPIRONOLACTONE25 MG PO
== END ==
LOC: SJCVC 13:35
PROVIDERS: ATTEND Internal Medicine Cardiovascular Disease
DX: Z51.81 Encounter for therapeutic drug level monitoring (principal); I48.0 Paroxysmal atrial fibrillation; J43.9 Emphysema, unspecified; I25.10 Atherosclerotic heart disease of native coronary artery without angina pectoris; I10 Essential (primary) hypertension; I25.5 Ischemic cardiomyopathy; R00.1 Bradycardia, unspecified; I47.2 Ventricular tachycardia; Z79.01 Long term (current) use of anticoagulants

== ENCOUNTER 2020-03-08 11:15 | Inpatient (IN) | payer OTHER ==
[2020-03-08] VITALS (13 sets, daily range): BP systolic 68–137; BP diastolic 32–115
[~2020-03-08] VITALS: Ht 177.8 cm; Wt 90.0 kg
[~2020-03-08 11:15] MED LIST changes: -3-DAY VAGINAL C21 GM TOP; -ASA81BEC PO; -JANTOVEN1 MG PO; -LEVO-T100 MCG PO; -SPIRONOLACTONE25 MG PO
[2020-03-08] MEDS ORDERED: JANTOVEN1 MG PO (11:28)
[2020-03-08] MEDS ORDERED: SPIRONOLACTONE25 MG PO (11:29)
[2020-03-08] MEDS ORDERED: LEVO-T100 MCG PO (11:30)
[2020-03-08] MEDS ORDERED: ASA81BEC PO (11:31)
[2020-03-08] MEDS ORDERED: 3-DAY VAGINAL C21 GM TOP (11:31)
[2020-03-08 11:52] LABS: ABSOLUTE NEUTROPHILS 5.3 thou/uL (1.4-8.2); BASOPHILS 1.1 % (0.0-2.0); EOSINOPHILS 2.6 % (0.0-3.0); HEMATOCRIT 37.3 % (42.0-52.0); HEMOGLOBIN 12.1 gm/dL (14.0-18.0); LYMPHOCYTES 12.3 % (24.0-44.0); MCH 30.7 pg (26.0-34.0); MCHC 32.5 g/dL (28.0-37.0); MCV 94.5 fL (80.0-100.0); MONOCYTES 9.2 % (1.0-8.0); PLATELET COUNT 199 thou/uL (150-400); POLYS 74.8 % (36.0-66.0); RBC 3.95 mil/uL (4.50-6.00); RDW 15.8 % (10.5-14.5)
[2020-03-08 12:03] LABS: INR 2.5; PROTIME 25.6 Seconds (9.3-11.4)
[2020-03-08 12:04] LABS: CALCIUM 8.6 mg/dL (8.5-10.1); CREATININE 4.3 mg/dL (0.7-1.3); POTASSIUM 5.4 mmol/L (3.5-5.1)
[2020-03-08 12:10] LABS: ALBUMIN 2.4 g/dL (3.4-5.0); TOTAL BILIRUBIN 1.6 mg/dL (0.2-1.0); TOTAL PROTEIN 6.5 g/dL (6.4-8.2)
[2020-03-08 12:11] LABS: PHOSPHORUS 4.1 mg/dL (2.6-4.7)
[2020-03-08 13:24] LABS: URINE BLOOD 3+ (Negative); URINE GLUCOSE-RANDOM* NEGATIVE (Negative); URINE KETONES NEGATIVE (Negative); URINE LEUKOCYTES-REFLEX TRACE (Negative); URINE NITRITE-REFLEX NEGATIVE (Negative); URINE PROTEIN (DIPSTICK) TRACE (Negative); URINE SPECIFIC GRAVITY >= 1.030 (1.005-1.035)
[2020-03-08 13:26] LABS: URINE CLARITY HAZY; URINE COLOR YELLOW
[2020-03-08 13:27] LABS: ICTOTEST (BILI CONFIRMATORY) Negative (Negative); URINE BILIRUBIN NEGATIVE (Negative)
[2020-03-08 13:40] LABS: BACTERIA-REFLEX None Seen /HPF (None Seen); CASTS None Seen /LPF (None Seen); MUCUS 0-3 Light strn/LPF (None Seen); SQUAMOUS 0-3 Few /LPF (0-3); URINE RBC 0-2 Rare /HPF (0-2); URINE WBC-REFLEX 0-5 Rare /HPF (0-5)
[2020-03-08 13:41] LABS: AMORPHOUS URATES Few /LPF (None Seen); TRANSITIONAL EPITHEL CELL 0-3 Few /LPF (None Seen)
--- NOTE | 2020-03-08 14:56 | EKG ---
[address] [place] [address] ELECTROCARDIOGRAM REPORT Name: ALMA MERCEDES Room #: 170-7 ADM IN M.R.#: [id number] Admission: 03/08/20 Attend Phys: Hubert Bravo MD Discharge: Date of : 54 Report #: [id number] [facility] ED Test Date: 2020-03-08 Test Time: 11:29:31 Pat Name: ALMA MERCEDES Department: Room: 170 Gender: M Catering Server: ZENIA : 1950 Requested By: Lyn Pierce Order Number: [id number] MD: Anjel William Measurements Intervals Elliott Rate: 60 P: WA: 81 QRS: 90 QRSD: 122 T: -14 QT: 449 QTc: 449 Interpretive Statements Atrial-paced rhythm Nonspecific intraventricular conduction delay Borderline repolarization abnormality Minimal ST elevation, inferior leads Baseline wander in lead(s) V4 No previous ECG available for comparison Electronically Signed On 03-08-2020 14:56:36 [employer] by Anjel William [email or web address] <ELECTRONICALLY SIGNED> By: Anjel William MD, [facility] 03/08/20 1456 1129 1129 Anjel William MD, FACC /EPI
[2020-03-08 18:50] LABS: BF NUCLEATED CELLS 83 /mm3; BF RBC 380 /mm3; CLARITY CLEAR; COLOR YELLOW; TOTAL VOLUME 60 mL
[2020-03-08 19:46] LABS: SOURCE ABDOMINAL
[2020-03-08 19:49] LABS: BF NEUTROPHILS 5 %
[2020-03-08 19:50] LABS: BF MACROPHAGE 49 %
[2020-03-09] VITALS (71 sets, daily range): BP systolic 55–124; BP diastolic 16–66
[2020-03-09 03:46] LABS: MCH 30.7 pg (26.0-34.0); MCHC 32.9 g/dL (28.0-37.0); MCV 93.5 fL (80.0-100.0); RBC 2.35 mil/uL (4.50-6.00); RDW 15.5 % (10.5-14.5); WBC 7.5 thou/uL (4.0-11.0)
[2020-03-09 03:55] LABS: HEMOGLOBIN 7.2 gm/dL (14.0-18.0)
[2020-03-09 03:56] LABS: CALCIUM 8.4 mg/dL (8.5-10.1); CREATININE 4.7 mg/dL (0.7-1.3); MAGNESIUM 1.8 mg/dL (1.8-2.4); POTASSIUM 5.3 mmol/L (3.5-5.1)
[2020-03-09 07:41] LABS: SOURCE ABDOMINAL
[2020-03-09 13:45] LABS: INR 2.7; PROTIME 28.1 Seconds (9.3-11.4)
[2020-03-09 13:46] LABS: DIRECT BILIRUBIN 0.9 mg/dL (<0.1-0.2); TOTAL BILIRUBIN 2.6 mg/dL (0.2-1.0)
[2020-03-09 13:47] LABS: ALBUMIN 3.8 g/dL (3.4-5.0); DIRECT BILIRUBIN 0.9 mg/dL (<0.1-0.2); TOTAL BILIRUBIN 2.6 mg/dL (0.2-1.0); TOTAL PROTEIN 5.9 g/dL (6.4-8.2)
--- NOTE | 2020-03-09 16:30 | 2DMMODE ---
[facility] [place] [address] 2 D/M-MODE ECHOCARDIOGRAM Name: ALMA MERCEDES Room #: 243-P ADM IN M.R.#: [id number] Admission: 03/08/20 Attend Phys: Hubert Bravo MD Discharge: Date of : 54 Report #: [id number] THIS REPORT FOR: cc: Manjinder Del Castillo David J. DO Couchonnal, Luis F. MD ~ APPROVED REPORT Study performed: 03/09/2020 09:53:24 EXAM: Comprehensive 2D, Doppler, and color-flow Echocardiogram Patient Location: Bedside Room #: 243 Status: stat BSA: 2.15 HR: 60 bpm BP: 94/48 mmHg Rhythm: NSR Other Information Study Quality: Adequate Risk Factors: Cardiac Risk Factors: HTN Indications ICD: Congestive Heart Failure COPD Atrial Fibrillation Cardiomyopathy 2D Dimensions IVSd: 10.92 (7-11mm) LVOT Diam: 23.00 (18-24mm) LVDd: 53.49 mm PWd: 11.18 (7-11mm) Ascending Ao: 32.47 (22-36mm) LVDs: 41.14 (25-40mm) Aortic Root: 33.44 mm LV Single Plane 4CH: 46.65 % LV Single Plane 2CH: 48.99 % Biplane EF: 48.9 % Volumes Left Atrial Volume (Systole) [facility] [email or web address] [address] 2 D/M-MODE ECHOCARDIOGRAM Name: ALMA MERCEDES Room #: 243-P [facility] IN M.R.#: [id number] Admission: 03/08/20 Attend Phys: Hubert Bravo, Discharge: Date of : 54 Report #: [id number] Single Plane 4CH: 69.44 mL Single Plane 2CH: 77.68 mL LA ESV Index: 40.00 mL/m2 Aortic Valve AoV Peak Mino.: 2.07 m/s AO Peak Gr.: 17.20 mmHg LVOT Max P.47 mmHg LVOT Max V: 1.06 m/s KERWIN Vmax: 2.11 cm2 Mitral Valve E/A Ratio: 1.4 MV Decel. Time: 249.38 ms MV E Max Mino.: 0.96 m/s MV A Mino.: 0.71 m/s MV PHT: 72.32 ms IVRT: 86.51 ms TDI E/Lateral E': 9.60 E/Medial E': 8.73 Medial E' Mino.: 0.11 m/s Lateral E' Mino.: 0.10 m/s Pulmonary Valve PV Peak Mino.: 1.19 m/s PV Peak Gr.: 5.68 mmHg Pulmonary Vein P Vein S: 0.45 m/s P Vein A: 0.23 m/s P Vein D: 0.57 m/s P Vein A Dur.: 107.3 msec P Vein S/D Ratio: 0.79 Tricuspid Valve TR Peak Mino.: 2.75 m/s TR Peak Gr.: 30.34 mmHg Left Ventricle The left ventricle is normal size. There is normal LV segmental wall motion. There is normal left ventricular wall thickness. Left ventricular systolic function is normal. The left ventricular ejection fraction is within the normal range. LVEF is 45-50%. The left ventricular diastolic function is normal. Right Ventricle The right ventricle is normal size. The right ventricular systolic function is normal. [facility] [address] [place] [address] 2 D/M-MODE ECHOCARDIOGRAM Name: ALMA MERCEDES Room #: 243-P [facility] IN M.R.#: [id number] Admission: 03/08/20 Attend Phys: Hubert Bravo, Discharge: Date of : 54 Report #: [id number] Left atrium is mildly dilated. Right atrium is dilated. Aortic Valve The aortic valve is normal in structure. Mild aortic regurgitation. There is no aortic valvular stenosis. Mitral Valve The mitral valve is normal in structure. Mild mitral regurgitation. No evidence of mitral valve stenosis. Tricuspid Valve The tricuspid valve is normal in structure. Mild tricuspid regurgitation. Tricuspid regurgitant jet is 30 mmHg. Unable to assess PA pressure. Pulmonic Valve The pulmonary valve is normal in structure. There is no pulmonic valvular regurgitation. Great Vessels The aortic root is normal in size. The ascending aorta is normal in size. IVC is not well visualized. Pericardium There is no pericardial effusion. <Conclusion> The left ventricle is normal size. LVEF is 45-50%. The right ventricle is normal size. The aortic valve is normal in structure. Mild aortic regurgitation. There is no aortic valvular stenosis. The mitral valve is normal in structure. The tricuspid valve is normal in structure. The tricuspid valve is normal in structure. There is no pericardial effusion. <ELECTRONICALLY SIGNED> By: Gumaro De Anda MD 03/09/20 163 [id number] Gumaro De Anda MD /INF
[2020-03-10] VITALS (77 sets, daily range): BP systolic 74–202; BP diastolic 34–181
[2020-03-10 05:17] LABS: WBC 6.9 thou/uL (4.0-11.0)
[2020-03-10 05:20] LABS: MCH 31.1 pg (26.0-34.0); MCHC 33.5 g/dL (28.0-37.0); MCV 92.9 fL (80.0-100.0); RBC 2.01 mil/uL (4.50-6.00); RDW 15.4 % (10.5-14.5)
[2020-03-10 05:23] LABS: INR 2.9; PROTIME 29.8 Seconds (9.3-11.4)
[2020-03-10 05:40] LABS: HEMATOCRIT 18.6 % (42.0-52.0); HEMOGLOBIN 6.2 gm/dL (14.0-18.0)
[2020-03-10 05:42] LABS: ALBUMIN 4.6 g/dL (3.4-5.0); CALCIUM 8.3 mg/dL (8.5-10.1); CREATININE 3.9 mg/dL (0.7-1.3); MAGNESIUM 1.7 mg/dL (1.8-2.4); PHOSPHORUS 3.2 mg/dL (2.6-4.7); POTASSIUM 5.2 mmol/L (3.5-5.1); TOTAL BILIRUBIN 2.9 mg/dL (0.2-1.0); TOTAL PROTEIN 6.2 g/dL (6.4-8.2)
[2020-03-11] VITALS (40 sets, daily range): BP systolic 85–175; BP diastolic 45–139
[2020-03-11 05:19] LABS: INR 2.1; PROTIME 21.1 Seconds (9.3-11.4)
[2020-03-11 05:22] LABS: MCH 30.6 pg (26.0-34.0); MCHC 33.1 g/dL (28.0-37.0); MCV 92.7 fL (80.0-100.0); RBC 2.27 mil/uL (4.50-6.00); RDW 15.2 % (10.5-14.5)
[2020-03-11 05:25] LABS: ALBUMIN 4.7 g/dL (3.4-5.0); CALCIUM 8.5 mg/dL (8.5-10.1); CREATININE 3.6 mg/dL (0.7-1.3); MAGNESIUM 1.5 mg/dL (1.8-2.4); PHOSPHORUS 2.4 mg/dL (2.6-4.7); POTASSIUM 4.7 mmol/L (3.5-5.1); TOTAL PROTEIN 6.1 g/dL (6.4-8.2)
[2020-03-11 05:29] LABS: TOTAL BILIRUBIN 4.3 mg/dL (0.2-1.0)
--- NOTE | 2020-03-11 08:00 | NUR ---
ASSUMMED CARE OF PATIENT AT 0700 TODAY. NO ACTIVE BLEEDING NOTED. ABD IS DISTENDED AND FIRM. WILL CONTINUE TO MONITOR.
--- NOTE | 2020-03-11 08:12 | NUR ---
ASSUMED PT CARE AT 1900. VSS. PT A&0X4. PLEASANT. PT IS STABLE, HAD AN UNEVENTFUL NOC, WILL CONTINUE TO CLOSELY MONITOR
[2020-03-11 12:06] LABS: BODY FLUID ALBUMIN 0.4 g/dL (Not Estab.); BODY FLUID AMYLASE 22 U/L (()); BODY FLUID GLUCOSE 110 mg/dL (()); BODY FLUID LDH 50 IU/L (()); BODY FLUID PROTEIN 1.2 g/dL (())
--- NOTE | 2020-03-11 13:23 | NUR ---
CM COMPLETED THE INITIAL ASSESSMENT TO DISCUSS D/C PLANNING. PT A&OX4. PT LIVES HOME ALONE. PT HAS 0 DMES. PT DENIES HX W/HH OR SNF. PER RN, VSS. PT IS STABLE AND PT HAS EDG SCHED FOR TODAY. THERAPIES ARE FOLLOWING. CM TO CONT TO FOLLOW.
--- NOTE | 2020-03-11 15:56 | HC ---
[facility] [place] [address] CONSULTATION Name: ALMA MERCEDES Room #: 243-P ADM IN M.R.#: [id number] Admission: 03/08/20 Attend Phys: Hubert Bravo MD Discharge: Date of : 54 Report #: [id number] THIS REPORT FOR: cc: Manjinder Del Castillo,Gumaro Capellan MD ~ CARDIOLOGY CONSULTATION REASON FOR CONSULTATION: CHF, hypotension. HISTORY OF PRESENT ILLNESS: The patient is a patient of [facility] and Dr. Daly who has a history of an ischemic cardiomyopathy, status post upgrade to a [employer]berto Bi-V ICD in 02/2019, who presents to the hospital after having increased fatigue, increased swelling and abnormal labs. The patient was noted to have significant ascites and had 8 liters of fluid removed the other day. Since then, he has been having issues with progressive hypotension requiring pressors. A stat echo was ordered, which I reviewed. EF appears to be around 45-50% with no significant valvular abnormalities, no pericardial effusion. Speaking with the patient, he denies any active chest pain. He has been having exertional dyspnea, which has worsened over the past few months. He has been having increased swelling. He had been worked up for liver issues, had a liver biopsy. ____ No evidence of an amiodarone-induced liver dysfunction. He denies PND or orthopnea. He denies presyncope or syncope. He has had no ICD shocks. PAST MEDICAL HISTORY: 1. Coronary artery disease, status post myocardial infarction. 2. Ischemic cardiomyopathy, EF of 35% in 07/2015. 3. Paroxysmal atrial fibrillation. 4. ICD implantation in 2013. 5. ICD shock in 2014 for AFib. 6. Sinus bradycardia. 7. History of VT with ICD shocks on amiodarone. 8. Chronic obstructive pulmonary disease. 9. Echocardiogram 10/2018, EF 40%, [id number] MR. 10. Upgrade to a [employer]berto Bi-V ICD on 02/2019. FAMILY HISTORY: Noncontributory. SOCIAL HISTORY: Does not smoke. REVIEW OF SYSTEMS: A 12-point review of systems was negative other than what I mentioned above. HOME MEDICATIONS: My last visit including amiodarone 400 a day, aspirin, Lipitor, carvedilol 25 b.i.d., fluticasone, loratadine, methimazole, omega 3 fatty acids, warfarin. [facility] [address] [place] [address] CONSULTATION Name: ALMA MERCEDES Room #: 243-P [facility] IN [facility].#: [id number] Admission: 03/08/20 Attend Phys: Hubert Bravo MD Discharge: Date of : 54 Report #: [id number] CURRENT MEDICATIONS: Include octreotide, midodrine, Synthroid, phenylephrine, Levophed, amiodarone, albumin, insulin. PHYSICAL EXAMINATION: VITAL SIGNS: Afebrile, pulse 60, respirations 16, blood pressure 110/59, sats 97%. GENERAL: No acute distress. HEENT: Oropharynx clear. NECK: Supple, no thyromegaly. HEART: Regular rate and rhythm with no murmurs, rubs or gallops. He has a slight elevated JVD. LUNGS: Clear bilaterally. ABDOMEN: Soft, nontender, nondistended. EXTREMITIES: No clubbing, cyanosis. He has a trace edema. NEUROLOGIC: His cranial nerves 2-12 are intact. LABORATORY DATA: Hemoglobin 7, white count 7, platelets 161. Coags: INR 2.5. Chemistries: Sodium 138, potassium 5.3, BUN 69, creatinine 4.7. ProBNP is 1343. ASSESSMENT: In summary, the patient is a 69-year-old with history of ischemic cardiomyopathy, presents with worsening ascites, shortness of breath. He has worsening hypotension after having a very large volume of ascites removed. I would expect that there is some third spacing and now some intravascular depletion to explain why his hypotension is worsening. His echocardiogram, ejection fraction looks 40-50% with no pericardial effusion. At this time, I would continue with supportive care for his blood pressure, hold off on any antihypertensive medications obviously. I do not think IV diuresis is required at this time. I do not think an ischemic evaluation is warranted either. We will continue to follow. <ELECTRONICALLY SIGNED> By: Gumaro De Anda MD 03/11/20 1556 1119 1133 Gumaro De Anda MD /nt
--- NOTE | 2020-03-11 18:45 | NUR ---
PATIENT UP IN THE CHAIR MOST OF THE DAY, WEAK AND UNSTEADY WHEN RETURNING TO BED. ABD APPEARS MORE DISTENDED. DR CAZARES IN AND UPDATED ON PATIENT STATUS.
--- NOTE | 2020-03-11 20:44 | NUR ---
PATIENT IS PROGRESSING SLOWLY TOWARDS OUTCOME GOALS.
[2020-03-12] VITALS (29 sets, daily range): BP systolic 93–118; BP diastolic 47–74
[2020-03-12 05:41] LABS: HEMOGLOBIN 6.9 gm/dL (14.0-18.0); MCH 31.5 pg (26.0-34.0); MCHC 34.1 g/dL (28.0-37.0)
[2020-03-12 05:43] LABS: HEMATOCRIT 20.4 % (42.0-52.0); MCV 92.3 fL (80.0-100.0); RBC 2.21 mil/uL (4.50-6.00); RDW 15.1 % (10.5-14.5); WBC 9.6 thou/uL (4.0-11.0)
[2020-03-12 05:48] LABS: PROTIME 20.2 Seconds (9.3-11.4)
[2020-03-12 05:58] LABS: CALCIUM 8.7 mg/dL (8.5-10.1); CREATININE 3.4 mg/dL (0.7-1.3); MAGNESIUM 1.5 mg/dL (1.8-2.4); POTASSIUM 4.5 mmol/L (3.5-5.1); TOTAL BILIRUBIN 5.1 mg/dL (0.2-1.0); TOTAL PROTEIN 6.3 g/dL (6.4-8.2)
--- NOTE | 2020-03-12 10:30 | NUR ---
PATIENT HAD PARACENTESIS PERFORMED AND TOLERATED WELL.
--- NOTE | 2020-03-12 12:00 | NUR ---
1200- PATIENT TRANSFERRED TO CCU WITH ASSISTANCE OF TWO RNS AND THE BED. REPORT WAS CALLED PREVIOUS TO THAT. 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
--- NOTE | 2020-03-12 15:07 | PATH ---
[facility] [address] [place] [address] PATHOLOGY RPT PROCEDURE Name: ALMA MERCEDES Room #: 207-P ADM IN M.R.#: [id number] Admission: 03/08/20 Date of : 54 Discharge: Report #: [id number] Path Case #: [id number] Note [facility] Accession Number: [id number] TESTS RESULT FLAG UNITS REF RANGE LAB Clinician Provided Cytology Information No. of containers..01 Other (Miscellaneous) Source: 01 PERITONEAL FLUID DIAGNOSIS: 02 PERITONEAL FLUID NEGATIVE FOR MALIGNANT EPITHELIAL CELLS. REACTIVE MESOTHELIAL CELLS ARE PRESENT. THIS INTERPRETATION INCLUDES EVALUATION OF A CELL BLOCK. RARE ACUTE AND CHRONIC INFLAMMATORY CELLS PRESENT. Pathologist ICD10: 02 N17.9 Signed out by: 02 Silvia Tapia MD, Pathologist NPI- [id number] Performed by: 01 Meghan Dean, Cashier ([facility]) Gross description: 01 17ML, YELLOW, 1TP 1CB /LCS 03/11/2020 0801 Local FLAG LEGEND: L-Low Normal,H-High Normal,LL-Alert Low,HH-Alert High <-Panic Low,>-Panic High,A-Abnormal,AA-Critical Abnormal Performed at: [address] [place] [address] Guy Granados MD, [address] [address] Silvia Tapia MD, Specimen Comment: A courtesy copy of this report has been sent to [phone] Specimen Comment: [id number] Specimen Comment: Report sent to DR CAZARES / DR GIVENS Specimen Comment: A duplicate report has been generated due to demographic updates. Performed at: [address], [place], [place] [id number] [address] [address] PATHOLOGY RPT PROCEDURE Name: ALMA MERCEDES Room #: 207-P ADM IN M.R.#: [id number] Admission: 03/08/20 Date of : 54 Discharge: Report #: [id number] Path Case #: [id number] MD Guy Granados MD Phone: [phone]
--- NOTE | 2020-03-12 20:10 | NUR ---
ASSUMED CARE OF PT AT APPROX 1330 FROM ICU. ASSESSMENT CHARTED. MEDS GIVEN PER APR. PT A&OX4, NO C/O PAIN. POOR APPETITE D/T N/V AFTER EATING. PLAN FOR EGD TOMORROW. WILL CONTINUE TO MONIOTR AND FOLLOW POC.
[2020-03-13 05:50] VITALS: BP 128/68
[2020-03-13 06:14] LABS: HEMATOCRIT 24.9 % (42.0-52.0); HEMOGLOBIN 8.3 gm/dL (14.0-18.0); MCH 30.8 pg (26.0-34.0); MCHC 33.6 g/dL (28.0-37.0); MCV 91.8 fL (80.0-100.0); RBC 2.71 mil/uL (4.50-6.00); RDW 15.2 % (10.5-14.5); WBC 7.8 thou/uL (4.0-11.0)
[2020-03-13 06:28] LABS: ALBUMIN 4.8 g/dL (3.4-5.0); CALCIUM 8.8 mg/dL (8.5-10.1); CREATININE 2.7 mg/dL (0.7-1.3); INR 1.8; POTASSIUM 3.9 mmol/L (3.5-5.1); PROTIME 18.8 Seconds (9.3-11.4); TOTAL BILIRUBIN 5.8 mg/dL (0.2-1.0); TOTAL PROTEIN 6.1 g/dL (6.4-8.2)
[2020-03-13 08:09] VITALS: BP 114/62
[2020-03-13 11:51] VITALS: BP 118/66
[2020-03-13 15:24] VITALS: BP 123/71
--- NOTE | 2020-03-13 17:17 | NUR ---
Patient transferred to CCU from ICU. therapy reports patient may be good candidate for acute rehab. Requested 5N shaquille. casemgt following.
--- NOTE | 2020-03-13 18:38 | NUR ---
PT IS ORIENTED, SOMEWHAT DROWSY. PT APPEARS JAUNDICED AND ABDOMEN IS DISTENDED. PT HAD PARACENTESIS CONDUCTED ONE DAY PRIOR, BUT STILL APPEARS GROSSLY DISTENDED. PT HAD EGD IN AM. PT COMPLAINED OF NAUSEA WITH MEALS POST PROCEDURE. PT IS ON LOW SODIUM REGULAR DIET; TAKES MEDICATIONS WITH WATER. POC CONTINUE TO MONITOR BLOOD PRESSURE, ESPECIALLY TRANSITIONING FROM LYING TO SITTING; TURNING IN BED. MONITOR SACRUM/COCCYX. FALL PRECAUTIONS IN PLACE. NO CONCERNS AT THIS TIME.
[2020-03-13 19:42] VITALS: BP 127/73
[2020-03-14] VITALS (8 sets, daily range): BP systolic 109–122; BP diastolic 58–69
[2020-03-14 07:46] LABS: ALBUMIN 4.1 g/dL (3.4-5.0); CALCIUM 8.5 mg/dL (8.5-10.1); CREATININE 2.2 mg/dL (0.7-1.3); PHOSPHORUS 2.2 mg/dL (2.6-4.7)
[2020-03-14 08:30] LABS: ALBUMIN 4.1 g/dL (3.4-5.0); DIRECT BILIRUBIN 2.4 mg/dL (<0.1-0.2); TOTAL BILIRUBIN 6.2 mg/dL (0.2-1.0); TOTAL PROTEIN 5.7 g/dL (6.4-8.2)
--- NOTE | 2020-03-14 11:47 | NUR ---
Case discussed with the care team. Labs worsening, pt more confused but on increased doses of lactulose. The attending is hoping pt's mental status will improve to discuss his plan of care and wishes. 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 Therapy is working with the pt as able and 5N has evaluated and following along should the pt improve and be able to tolerate acute rehab program. They would need ins auth. Will follow.
--- NOTE | 2020-03-14 19:30 | NUR ---
PT CARE ASSUMED AT 0700. ASSESSMENTS CHARTED. MEDICATIONS CHARTED. RIJ 3L PICC. APACED. POWELL. PT TO US FOR PARACENTESIS, NOT PERFORMED, ONLY 1 L FLUID, MAINLY GAS. BOUTS OF DIARRHEA, LACTULOSE.
[2020-03-15] VITALS (8 sets, daily range): BP systolic 99–124; BP diastolic 57–68
--- NOTE | 2020-03-15 04:04 | NUR ---
ASSESSMENT DOCUMENTED.PT BEEN RESTING IN NO ACUTE DISTRESS.VSS.A-PACED ON MONITOR.DENIES PAIN.VERBALIZES FEELING VERY TIRED.DENIES RESP DISTRESS.ABD REMAINS DISTENDED.SHERRY TAYLOR.NO OTHER CONCERNS VOICED.WILL CONT TO MONITOR PER POC.
[2020-03-15 05:12] LABS: ALBUMIN 4.1 g/dL (3.4-5.0); CALCIUM 8.5 mg/dL (8.5-10.1); CREATININE 2.1 mg/dL (0.7-1.3); MAGNESIUM 1.5 mg/dL (1.8-2.4); POTASSIUM 3.7 mmol/L (3.5-5.1); TOTAL PROTEIN 5.8 g/dL (6.4-8.2)
[2020-03-15 05:17] LABS: INR 1.8; PROTIME 18.3 Seconds (9.3-11.4)
[2020-03-15 05:26] LABS: HEMATOCRIT 26.1 % (42.0-52.0); HEMOGLOBIN 8.8 gm/dL (14.0-18.0); MCH 31.3 pg (26.0-34.0); MCHC 33.9 g/dL (28.0-37.0); MCV 92.2 fL (80.0-100.0); RBC 2.83 mil/uL (4.50-6.00); RDW 15.8 % (10.5-14.5); WBC 8.7 thou/uL (4.0-11.0)
--- NOTE | 2020-03-15 10:42 | NUR ---
PATIENT HAS BEEN SEEN BY DEYSI MARCELINO FOR REHAB CONSULT. PATIENT IS NOT MEDICALLY STABLE ENOUGH AT THIS TIME TO DETERMINE IF HE WILL BE A CANDIDATE FOR ACUTE REHAB SERVICES. WILL CONTINUE TO FOLLOW AND LOOK AT PATIENT'S MEDICAL AND REHAB STATUS WEDNESDAY TO SEE IF DETERMINIATION FOR D/C PLANNING CAN BE MADE. THANK YOU FOR THIS REFERRAL.
--- NOTE | 2020-03-15 13:40 | NUR ---
5N following. No discharge planned this weekend. casemgt following.
[2020-03-16 03:41] VITALS: BP 120/72
--- NOTE | 2020-03-16 04:16 | NUR ---
ASSUMED PT CARE AT AROUND 1900, PT IS AWAKE, ALERT AND ORIENTEDX4, APACED ON THE MONITOR, POWELL IN PLACE, DENIES PAIN OR ANY DISTRESS, ABDOMEN REMAINS DISTENDED, MEDS GIVEN PER MAR, ASESSMENTS CHARTED, WILL CONTINUE TO MONITOR, AND FOLLOW POC
[2020-03-16 07:30] VITALS: BP 122/74
[2020-03-16 07:43] LABS: HEMATOCRIT 26.8 % (42.0-52.0); HEMOGLOBIN 9.1 gm/dL (14.0-18.0); MCH 31.4 pg (26.0-34.0); MCHC 33.9 g/dL (28.0-37.0); MCV 92.5 fL (80.0-100.0); RBC 2.9 mil/uL (4.50-6.00); RDW 15.7 % (10.5-14.5); WBC 10.6 thou/uL (4.0-11.0)
[2020-03-16 08:02] LABS: ALBUMIN 4.1 g/dL (3.4-5.0); CALCIUM 8.5 mg/dL (8.5-10.1); CREATININE 2.1 mg/dL (0.7-1.3); MAGNESIUM 1.7 mg/dL (1.8-2.4); POTASSIUM 3.4 mmol/L (3.5-5.1); TOTAL BILIRUBIN 7.5 mg/dL (0.2-1.0); TOTAL PROTEIN 5.8 g/dL (6.4-8.2)
[2020-03-16 11:45] VITALS: BP 120/71
[2020-03-16 16:00] VITALS: BP 116/74
--- NOTE | 2020-03-16 17:42 | NUR ---
PT IS ALERT AND ORIENTED X4, PLEASANT BUT FLAT. PT COMPLAINS OF PAIN IN THE BUTTOCKS, RELATED TO IMMOBILITY. PT HAS HAD DIFFICULTY WITH MEALS, COMPLAINING OF FEELING NAUSEOUS, WITH 1 EPISODE OF EMESIS AT DINNER. SPEECH CONSULTED. PT BROTHER CALLED. CASE MGMT FOLLOWING. POC IS TO TRANSFER TO FOR ACUTE REHAB. FALL PRECAUTIONS IN PLACE. NO CONCERNS AT THIS TIME.
[2020-03-16 20:04] VITALS: BP 117/61
[2020-03-17] VITALS (97 sets, daily range): BP systolic 69–122; BP diastolic 42–78
--- NOTE | 2020-03-17 02:48 | NUR ---
assumed pt care at the change of shift, pt is lethargic, coghing and drooling, pt also had a big loose stool, pt cleaned up, vital signs obtained and as charted, o2 sats noted to be at 85, pt put on 2l nc, concerned for aspiration, pt received meds as per apr, lactulose thickened, pt kept npo, bp noted to be low, economic historian notified, orders received, iv fluids given, bp still low, economic historian and bathhouse attendant notified, orders received, will continue to monitor
[2020-03-17 04:46] LABS: HEMATOCRIT 25.3 % (42.0-52.0); HEMOGLOBIN 8.6 gm/dL (14.0-18.0); MCH 31.3 pg (26.0-34.0); MCHC 33.9 g/dL (28.0-37.0); MCV 92.5 fL (80.0-100.0); RBC 2.74 mil/uL (4.50-6.00); RDW 16.2 % (10.5-14.5); WBC 16.8 thou/uL (4.0-11.0)
[2020-03-17 05:01] LABS: CALCIUM 8.1 mg/dL (8.5-10.1); MAGNESIUM 1.5 mg/dL (1.8-2.4); POTASSIUM 3.3 mmol/L (3.5-5.1); TOTAL BILIRUBIN 9.4 mg/dL (0.2-1.0); TOTAL PROTEIN 5.4 g/dL (6.4-8.2)
[2020-03-17 05:08] LABS: CREATININE 3.1 mg/dL (0.7-1.3)
--- NOTE | 2020-03-17 07:29 | NUR ---
UPDATED BROTHER KWAN ON THE PATIENTS CHANGE OF STATUS AND TRANFER TO ICU
--- NOTE | 2020-03-17 07:41 | NUR ---
Patient here from at 0530 with low blood pressures. SBP noted to be in the 70's. Levophed started at 5 mcgs and blood pressure up in to the 90's low 100s Patient able to converse and is oriented. Very weak. Report given to day shift.
--- NOTE | 2020-03-17 11:06 | NUR ---
US TECH CALLED AND WANTED CLARIFICATION IF DR. WEBER NEEDED ORDERED US OF ABD. US TECH STATES PT JUST HAD CT OF ABD/PELVIS ON 03/08 AND US OF ABD ON 03/14. DR. WEBER WAS PAGED AND STATED HE IS AWARE OF THOSE SCANS BUT THAT THE PATIENT'S STATUS HAS CHANGED, PT'S LFT'S ARE ELEVATED, PT IS HYPOTENSIVE, FEBRILE, AND WBC'S ARE ELEVATED AND HE DOES WANT THE US OF ABD DONE ORDERED. RN CALLED US, NO ANSWER, RN CALLED AND SPOKE WITH RADIOLOGY AND HE STATES HE WILL RELAY MESSAGE TO US [facility].
--- NOTE | 2020-03-17 18:31 | NUR ---
PT'S AM K, MAG AND PHOS LOW. RENAL WROTE ORDER FOR REPLACEMENT. PT NOT PROGRESSING TOWARDS GOALS. NEW ORDER FOR PALLATITIVE CONSULT ORDERED. NEW PAIN MEDICATION ORDER GIVEN PER DR DUPONT. PT GIVEN IV FENTANYL 12.5 AND PT NOW RESTING COMFORTABLE. PT REQUESTED SCDS AND PRAFO BOOTS OFF AT THIS TIME. PT REMAINS VERY JAUNDICE. URINE REMAINS VERY CONCENTRATED. PT HAD BEDSIDE US OF ABD TODAY.
--- NOTE | 2020-03-17 19:46 | NUR ---
RN WAS TOLD IN REPORT THAT PT HAS WHAT APPEARS TO BE PRESSURE WOUNDS TO COCCYX/BILAT BUTTOCKS AND BOGGY HEALS. WOUND PICTURES WERE TAKEN BY THIS RN AND PLACED ON CHART. PT WAS TURNED Q2 HOURS AND PRN. PT WAS VERY RESTLESS IN BED TODAY AND WAS READJUSTED AND PULLED UP MULTIPLE TIMES EACH HOUR. NO OPEN WOUNDS AT THIS TIME. USE OF PILLOWS AND WEDGES.
[2020-03-18] VITALS (96 sets, daily range): BP systolic 80–136; BP diastolic 37–87
[2020-03-18 06:37] LABS: HEMATOCRIT 26.9 % (42.0-52.0); MCH 30.7 pg (26.0-34.0); MCHC 33.3 g/dL (28.0-37.0); RBC 2.93 mil/uL (4.50-6.00); RDW 16.2 % (10.5-14.5); WBC 13.3 thou/uL (4.0-11.0)
[2020-03-18 06:59] LABS: ALBUMIN 4.1 g/dL (3.4-5.0); CALCIUM 8.3 mg/dL (8.5-10.1); CREATININE 2.7 mg/dL (0.7-1.3); MAGNESIUM 2.2 mg/dL (1.8-2.4); PHOSPHORUS 2.6 mg/dL (2.6-4.7); POTASSIUM 3.2 mmol/L (3.5-5.1); TOTAL PROTEIN 5.6 g/dL (6.4-8.2)
[2020-03-18 07:05] LABS: TOTAL BILIRUBIN 9.7 mg/dL (0.2-1.0)
--- NOTE | 2020-03-18 07:39 | NUR ---
Pt TRANSFERRED TO ICU. WILL PLACE ON HOLD AND AWAIT NEW ORDERS TO RESUME WHEN APPROPRIATE
--- NOTE | 2020-03-18 07:50 | NUR ---
PT PROGRESSING TOWARDS GOALS FAR AGRREING TO WORK TOWARDS BETTER SKIN HEALTH. AGRRED TO ALYX SCD'S, PROFO BOOTS INTERMITANTLY, AND MORE REPOSITIONING TO PROMOTE HEAALING OF BILAT HEALS, BOTTOM, AND BACK. REMAINS ON LEVOPHEND, PLAND TO HAVE SWALLOW EVAL TODAY. ONCE PO IS TOLERATED PT MAY TAKE HIS MIDODRINE. PATIENT REQIRES POTASSIUM REPLACEMT. PATEINT WANTS TO HAVE HIS PCP UPDATED.
--- NOTE | 2020-03-18 16:15 | NUR ---
PT RESTING COMFORTABLY IN BED. PT WENT TO [facility]UCLE[facility]ICINE TODAY FOR A PEPTIDA SCAN. SPEECH PATHOLOGY CONSULTED FOR PT. MECHANICAL/SOFT DIET WAS RECOMMENDED. POTASSIUM REPLACED PER [facility]. PT AFEBRILE, MARGINAL UOP, LOOSE BM, NO EMESIS/NAUSEA. DR MANCIA WAS CONSULTED FOR POSSIBLE SURGERY OF GALLBLADDER. PT AND FAMILY HAVE BEEN UPDATED AND EDUCATED ON PT CONDITION AND POC. PT SLOWLY PROGRESSING TOWARDS POC.
--- NOTE | 2020-03-18 16:19 | NUR ---
Spoke with Brother Cristian and His (retired RN) at [phone]. States the patient has been a social isolative from family till very recently when the patient reached out to speak with his brother. Family is young that patient keeps family distant to his current needs and the patient states he has a neighbor and friend that would "know what to do" if the patients health took a turn for the worse. Patient is listed as a full code and has told family he is not in need of a DPOA. The plan at this time is for patient to be followed with possible transfer to acute rehab on . Will suggest a virtual family conference if indeed this occurs. Did notify brother and his to continue to be supportive and again explained role of case management and assured them that Case management will continue to follow for discharge needs.
[2020-03-19] VITALS (103 sets, daily range): BP systolic 90–130; BP diastolic 47–88
[2020-03-19 04:35] LABS: ALBUMIN 4.1 g/dL (3.4-5.0); CALCIUM 8.3 mg/dL (8.5-10.1); CREATININE 2.3 mg/dL (0.7-1.3); POTASSIUM 3.6 mmol/L (3.5-5.1)
[2020-03-19 05:22] LABS: PROTIME 20.6 Seconds (9.3-11.4)
--- NOTE | 2020-03-19 10:48 | NUR ---
Nutrition: REC and thiamine supplementation
--- NOTE | 2020-03-19 13:43 | NUR ---
PT RESTING COMFORTABLY IN BED. PALLIATIVE CARE WAS CONSULTED AND PT IS NOW A DNR. ULTRASOUND OF ABDOMEN TODAY, POSSIBLE ABDOMINAL PARACENTESIS TODAY. SURGERY WAS CONSULTED, DR MANCIA DID NOT GIVE ANY SURGICAL RECOMMENDATIONS. PT AFEBRILE, ADEQUATE UOP (THOUGH VERY DARK TASH WITH LARGE AMOUNTS OF SEDIMENT. BM X1, TOLERATING CLEAR LIQUIDS. DIETARY GAVE RECOMMENDATIONS FOR MECH/SOFT. POTASSIUM/PHOS REPLACED PER [facility]. PT HAS BEEN THOUROUGHLY EDUCATED ON CONDITION AND POC. PT SLOWLY PROGRESSING TOWARDS POC.
--- NOTE | 2020-03-19 14:59 | NUR ---
SW reviewed chart and spoke with nursing. Pt remains in ICU. Pt had PIPIDA scan yesterday. Surgery consulted. No surgical interventions planned at this time. Palliative care physician is following. Pt's code status changed to DNR today. Pt to have a parcentesis. SW is following to assist as needed with discharge planning.
[2020-03-19 16:30] LABS: ALBUMIN 4.2 g/dL (3.4-5.0); DIRECT BILIRUBIN 5.4 mg/dL (<0.1-0.2); TOTAL PROTEIN 5.7 g/dL (6.4-8.2)
--- NOTE | 2020-03-20 01:53 | NUR ---
2200 RECIEVED FROM ICU PER BED. DENIES PRESENT COMPLAINTS. TURNS SELF WITH MINIMAL ASSIST FOR COMFORT. WORKING ON GOALS AND PLAN OF CARE FOR NOC. PROGRESSING TOWARDS DISCHARGE GOALS SLOWLY. CONTINUE TO ASSES CLOSELY. ORIENTED TO ROOM AND FLOOR POLICIES.
[2020-03-20 04:00] VITALS: BP 114/69
[2020-03-20 05:48] LABS: CALCIUM 8.2 mg/dL (8.5-10.1); CREATININE 1.8 mg/dL (0.7-1.3); PHOSPHORUS 2.2 mg/dL (2.5-4.9); POTASSIUM 3.6 mmol/L (3.5-5.1)
[2020-03-20 07:52] VITALS: BP 110/71
[2020-03-20 11:17] LABS: DIRECT BILIRUBIN 5.9 mg/dL (<0.1-0.2); TOTAL BILIRUBIN 11.2 mg/dL (0.2-1.0); TOTAL PROTEIN 5.5 g/dL (6.4-8.2)
[2020-03-20 11:50] VITALS: BP 111/66
--- NOTE | 2020-03-20 14:37 | HC ---
[facility] [place] [address] CONSULTATION Name: ALMA MERCEDES Room #: 200-I ADM IN M.R.#: [id number] Admission: 03/08/20 Attend Phys: Hubert Bravo MD Discharge: Date of : 54 Report #: [id number] THIS REPORT FOR: cc: Manjinder Del Castillo David J. DO Chu, Peter Y. MD ~ SURGICAL CONSULTATION NOTE REASON FOR CONSULTATION: Gallstone, elevated liver function test, end-stage liver disease. HISTORY OF PRESENT ILLNESS: The patient is a 69-year-old who was admitted from the Emergency Room on 03/08/2020. The patient was seen by his primary care who noticed abnormal labs showing his creatinine was elevated at 4.3. The patient has longstanding history of ischemic cardiomyopathy, status post pacemaker, cirrhosis diagnosed in 2019 possibly from steatohepatitis, but he does have a history of alcohol usage/abuse. When he was younger he did drink daily. He has had increasing abdominal swelling and lower extremity swelling and more fatigue. He denied abdominal pain when he came in. Currently, he also denies abdominal pain. He has not been eating very well while he has been here. He is on liquid diet. The patient had multiple imaging including CT scan, multiple ultrasounds, paracentesis, PIPIDA scan yesterday. His bilirubin has been climbing and now it is up to 9.7. The patient came in with bilirubin of 1.6 and it is steadily climbing. He has had 2 paracenteses and felt better after fluid was drawn off. The patient does have a large gallstone about 2 cm in the region of the neck of the gallbladder. The gallbladder does not look particularly inflamed. His latest ultrasound showed mild gallbladder wall thickening. Upon review with Dr. Cedillo, the thickening is not unusual for the degree of ascites that he has. PIPIDA scan done yesterday did show the gallbladder ____. This would indicate that the stone is not obstructing the gallbladder and hence not likely to have acute cholecystitis. His gallbladder does have poor ejection fraction. PHYSICAL EXAMINATION: The patient is quite jaundiced. Abdomen was distended from ascites. He is not tender in the right upper quadrant. Negative Ramos sign. No guarding The patient is awake and alert. The patient is not in acute distress. IMPRESSION: The patient is a 69-year-old with end-stage liver disease. He came in with markedly elevated creatinine. I think his liver condition has decompensated affecting his fluid status and his creatinine. His creatinine has improved, but his liver function has increased. His current bilirubin of 9.7 is not consistent with acute cholecystitis. Even with typically the bilirubin will be 2-3 in somebody with acute cholecystitis. I do not think acute cholecystitis will cause the bilirubin elevation that he is experiencing. The patient is quite high risk for surgical intervention. His protime is elevated, INR of 2. His platelets are okay. The surgical removal of the gallbladder is quite risky. [address] [address] CONSULTATION Name: DARENALMA Room #: 200-I ADM IN M.R.#: [id number] Admission: 03/08/20 Attend Phys: Hubert Bravo MD Discharge: Date of : 54 Report #: [id number] Also gallbladder drain, I do not think can be done in the light of large amount of ascites. I do not think he has acute cholecystitis and I do not recommend any intervention at this point for the gallbladder. We will follow. <ELECTRONICALLY SIGNED> By: Clinton Hannah MD 03/20/20 1437 [id number] [id number] Clinton Hannah MD /nt
[2020-03-20 15:40] VITALS: BP 116/75
--- NOTE | 2020-03-20 19:56 | NUR ---
ASSUMED CARE OF PT AT SHIFT CHANGE. ASSESSMENTS CHARTED. MEDS GIVEN PER MAR. PT A&OX4, NO C/O PAIN OR DISTRESS. PT HAS POOR APPETITE. DECISION REGARDING PALLIATIVE CARE STILL PENDING. WILL CONTINUE TO MONITOR AND FOLLOW POC.
[2020-03-20 20:45] VITALS: BP 103/71; BP 147/110
[2020-03-21 00:37] VITALS: BP 118/73
--- NOTE | 2020-03-21 03:22 | NUR ---
SLEPT MOST OF SHIFT. PAIN MEDICATION FOR GENERALIZED PAIN NEEDED. WORKING ON GOALS AND PLAN OF CARE FOR NOC. REPOSITIONED NEEDED FOR COMFORT AND SKIN CARE. NOT PROGRESSING TOWARDS DISCHARGE GOALS AT THIS TIME. CONTINUE TO ASSES CLOSELY.
[2020-03-21 04:45] VITALS: BP 96/61
[2020-03-21 06:49] LABS: HEMATOCRIT 24.6 % (42.0-52.0); HEMOGLOBIN 8.4 gm/dL (14.0-18.0); MCH 31.7 pg (26.0-34.0); MCHC 34.3 g/dL (28.0-37.0); MCV 92.5 fL (80.0-100.0); RBC 2.66 mil/uL (4.50-6.00); RDW 17.6 % (10.5-14.5); WBC 6.5 thou/uL (4.0-11.0)
[2020-03-21 07:04] LABS: ALBUMIN 4.1 g/dL (3.4-5.0); DIRECT BILIRUBIN 6.4 mg/dL (<0.1-0.2); TOTAL PROTEIN 5.6 g/dL (6.4-8.2)
[2020-03-21 08:34] VITALS: BP 132/76
[2020-03-21 09:03] LABS: ALBUMIN 4.1 g/dL (3.4-5.0); CALCIUM 8.5 mg/dL (8.5-10.1); CREATININE 1.9 mg/dL (0.7-1.3); PHOSPHORUS 2.8 mg/dL (2.5-4.9)
[2020-03-21 11:46] VITALS: BP 92/54
[2020-03-21 16:11] VITALS: BP 112/52
--- NOTE | 2020-03-21 18:13 | NUR ---
PT C/O NO APPETITE, HAVING INCONTINENT STOOLING. PT OVERALL MUCH WEAKER AND DEBILITATED. WILL BE NPO AFTER MIDNIGHT FOR IR PROCEDURE PLACING A PLEUREX CATHETER FOR PALLIATIVE PARACENTESIS ON 03/22/2020. OVERALL, PT NOT PROGRESSING TOWARD GOALS, AND MOVING TOWARD HOSPICE CARE OR COMFORT CARE.
[2020-03-21 19:11] VITALS: BP 131/75
[2020-03-22 05:00] VITALS: BP 122/77
[2020-03-22 07:10] VITALS: BP 120/75
[2020-03-22 08:03] LABS: ALBUMIN 4.2 g/dL (3.4-5.0); CALCIUM 8.3 mg/dL (8.5-10.1); CREATININE 1.8 mg/dL (0.7-1.3); PHOSPHORUS 2.3 mg/dL (2.6-4.7); POTASSIUM 3.9 mmol/L (3.5-5.1)
[2020-03-22 11:20] VITALS: BP 128/77
--- NOTE | 2020-03-22 15:11 | NUR ---
Spoke with patient he appeared alert to this casemgr. Asked him if he knew what hospice does and care they provide. Patient reports "RNs will take care of me." Discussed with patient that he is dying. He said he understood. Told patient "Im very sorry." patient responded "theres nothing you can do." In continued discussion believe patient was understanding. Discussed with patient and brother [facility] eval and they are in agreement. Hospice contacted. THey are full at this time. THey plan to call unit in a.m. and eval tomorrow. Discussed with brother who is aware of process. Alerted if [facility] full then will likely not eval. outside DNR on chart copy. [facility] form on chart copy. [facility] [phone] [facility] [phone]
--- NOTE | 2020-03-22 18:34 | NUR ---
ASSUMED CARE OF PT AT SHIFT CHANGE. ASSESSMENTS CHARTED. MEDS GIVEN PER APR. PT A&OX4, NO C/O PAIN THIS SHIFT. PT HAD PLEUREX PERITONEAL CATHERTER PLACE TODAY. PLAN FOR POSSIBLE DC TO HOSPICE HOUSE TOMORROW. WILL CONTINUE TO MONITOR AND FOLLOW POC.
[2020-03-22 19:09] VITALS: BP 124/78
[2020-03-23 03:45] VITALS: BP 119/63
--- NOTE | 2020-03-23 04:22 | NUR ---
ASSUMED CARE OF THE PATIENT AT 1900; AOX4/BEDREST/WEAK; JAUNDICE IN COLOR; PAIN WITH MOVEMENT; Q2 TURN W/O REFUSAL/ HEELS OFFLOADED; pleurX CATHETER SITE COVERED BY GAUZE BANDAGES AND TRANSPARENT DRESSING/NO DRAINAGE; APACED/SR ON THE MONITOR; VSS/ ASSESSMENTS CHARTED; POWELL CATHETER IN PLACE WITH PENILE TIP SORENESS NEAR CATH ENTRANCE/ REFUSED CATH CARE/ SMALL AMOUNT OF LUBRICANT TO PREVENT FURTHER CRACKING; PLAN IS FOR PATIENT TO BE EVALUATED TODAY BY HOSPICE HOUSE FOR PLACEMENT; WILL CONTINUE TO MONITOR AND FOLLOW POC.
[2020-03-23 06:03] LABS: ALBUMIN 3.8 g/dL (3.4-5.0); CALCIUM 8.2 mg/dL (8.5-10.1); CREATININE 1.7 mg/dL (0.7-1.3); PHOSPHORUS 1.9 mg/dL (2.5-4.9); POTASSIUM 4.1 mmol/L (3.5-5.1)
[2020-03-23 08:19] VITALS: BP 114/62
[2020-03-23 11:11] VITALS: BP 101/54
[2020-03-23 12:05] VITALS: BP 140/57
[2020-03-23 15:09] VITALS: BP 106/56
--- NOTE | 2020-03-23 17:31 | NUR ---
RECEIVED PT'S CARE AROUND 724; PT. ON BED; ALERT; DURING AM ASSESSMENT AOX4; C/O PAIN; PRN PAIN MEDICATION GIVEN WITH AM MEDICATIONS; REPOSITIONED ON BED; EDUCATED ABOUT GOALS THROUGH THE DAY; ST. UNDERSTANDING; EDUCATED ABOUT FALL PRECAUTIONS; ST. UNDERSTANDING; APACED ON THE MONITOR; PER [facility] MEDICAL AND LAB DIRECTOR NOTES WAITING ON HOSPICE NURSE EVALUATION; CALL [facility]; CALL RETURN; NURSE SCHEDULED TO ARRIVE AT 1400; SCHEDULED MEDICATIONS ON EMAR ALTHOUGH PLAN FOR HOSPICE; PHYSICIAN NOTIFIED; NO NEW ORDERS; DR. DUPONT ROUNDING ON PT.; NOTIFIED ABOUT SCHEDULED MEDICATIONS; ORDERS ON PLACED; COMFORT CARE; D/C SCHEDULED MEDICATIONS BY DR. STACK; PER HOSPICE NURSE REPORT BED MIGHT BE AVAILABLE IN THE NEXT "TWO TO THREE DAYS"; PT. NOTIFIED ABOUT PRN PAIN MEDICATION AND PAIN MANAGEMENT; ST. UNDERSTANDING; POOR APPETITE THROUGH THE DAY; REFUSED DINNER; MONITORING; ASSESSMENT CHARGED; FOLLOWING POC; WILL PASS ON REPORT;
[2020-03-23 19:40] VITALS: BP 122/64
[2020-03-24 07:15] VITALS: BP 109/65
--- NOTE | 2020-03-24 07:40 | NUR ---
ASSUMED CARE OF THE PATIENT AT 1900; AOX4/DROWSY AT TIMES; COMFORT CARE; PRN PAIN MEDS GIVEN; VSS; REPOSITIONED PER PATIENT REQUEST WITH PILLOWS AND OFFLOADED HEELS; PLAN IS FOR PATIENT D/C TO HOSPICE HOUSE WHEN A BED IS AVAILABLE; WILL CONTINUE TO MONITOR.
--- NOTE | 2020-03-24 12:44 | NUR ---
[facility] PATIENT ON 03/23/20 AROUND 14:00. OF 03/24/20 PATIENT REMAINS ON PENDING STATUS AWAITING BED AVAILABILITY. [facility]: P [phone]
[2020-03-24 15:39] VITALS: BP 95/52
--- NOTE | 2020-03-24 17:39 | NUR ---
RECEIVED PT'S CARE AROUND 0720; PT. ON BED; RESTING WITH EYES CLOSED; SLEEP INTERRUPTED; ALERT; APACED ON THE MONITOR; DURING AM ASSESSMENT PT. AOX4; C/O PAIN OVER BUTTOCKS; ST. FEELING TIRED ON BEING ON BED; REQUESTED TO GET UP TO CHAIR; UP TO CHAIR WITH MAX ASSISTANCE; C/O PAIN OVER BUTTOCKS; HEART FOAM DRESSING APPLIED; PHYSICIAN NOTIFIED; ORDERS ON PLACED; PRN PAIN MEDICATION GIVEN; REASSESSMENT C/O PAIN; ZGARD APPLIED; REASSESSMENT PT. RESTING WITH EYES CLOSED; REQUESTED TO BE ON CHAIR; WAITING ON BED [facility]; PER DR. STACK D/C HEART MONITOR; STATUS CHANGE TO MS; CHARGE NURSE NOTIFIED; ASSESSMENT CHARGED; FOLLOWING POC; WILL PASS ON REPORT;
[2020-03-24 20:13] VITALS: BP 105/55
[2020-03-25 04:33] VITALS: BP 102/60
--- NOTE | 2020-03-25 04:35 | NUR ---
ASSUMED PT CARE AT 1900. VSS. PT A&0X4. PT HAD A GOOD NOC. COMPLAINED OF BUTTUCK PAIN, PAIN MANAGED PER MAR. PT IS EXTREAMLY WEEK AND COULD BARELY MOVE HIS LEGS TO SHUFLE OR PIVOT. IT TOOK [facility] TO GET PT FROM CHAIR TO BED. PT IS OTHERWISE STABLE, NO FURTHER COMPLAINTS, WILL CONTINUE TO MONITOR .
[2020-03-25 08:00] VITALS: BP 119/55
[2020-03-25 11:30] VITALS: BP 94/52
--- NOTE | 2020-03-25 14:27 | NUR ---
hospice house has a bed avail today. Chart copied, outside DNR on chart. [facility] for 12:30. Notified patient and brother. Updated Hospice house of time of discharge. Rn called report no further needs.
--- NOTE | 2020-03-25 17:28 | NUR ---
03/25/20 PATIENT TRANSPORTED VIA EMS TO [facility]. REPORT GIVEN. CENTRAL LINE LEFT IN PLACE PER [facility] REQUEST. PATIENT UPDATED FAMILY ON TRANSFER VIA CELL PHONE. ALL BELONGINGS SENT WITH PATIENT INCLUDING; CLOTHING, SHOES, BACKPACK AND CELL PHONE. PAIN MEDICATION GIVEN PRIOR TO TRANSPORT.
== END 2020-03-25 15:27 | disposition hospice, home (50) | DRG 871 ==
LOC: ER 11:15 → EDBD 14:00 → 2N 14:00 → ICU 14:00 → EROBS 14:00 → ICU 18:59 → 2N 03-12 12:15 → ICU 03-17 06:02 → 2N 03-19 22:13
PROVIDERS: Hospitalist; Internal Medicine; Internal Medicine Nephrology; Nurse Practitioner; Nurse Practitioner Family; Physician Assistant; ADMIT Internal Medicine; ATTEND Internal Medicine
DX: A41.9 Sepsis, unspecified organism (principal); N17.0 Acute kidney failure with tubular necrosis; K76.7 Hepatorenal syndrome; I85.11 Secondary esophageal varices with bleeding; E43 Unspecified severe protein-calorie malnutrition; R65.21 Severe sepsis with septic shock; I13.0 Hypertensive heart and chronic kidney disease with heart failure and stage 1 through stage 4 chronic kidney disease, or unspecified chronic kidney disease; K76.6 Portal hypertension; D62 Acute posthemorrhagic anemia; K80.12 Calculus of gallbladder with acute and chronic cholecystitis without obstruction; K70.40 Alcoholic hepatic failure without coma; K70.31 Alcoholic cirrhosis of liver with ascites; K70.11 Alcoholic hepatitis with ascites; I25.5 Ischemic cardiomyopathy; E80.6 Other disorders of bilirubin metabolism; K75.81 Nonalcoholic steatohepatitis (NASH); I95.9 Hypotension, unspecified; E78.5 Hyperlipidemia, unspecified; J44.9 Chronic obstructive pulmonary disease, unspecified; I25.10 Atherosclerotic heart disease of native coronary artery without angina pectoris; E87.5 Hyperkalemia; I48.0 Paroxysmal atrial fibrillation; N18.9 Chronic kidney disease, unspecified; I50.9 Heart failure, unspecified; K44.9 Diaphragmatic hernia without obstruction or gangrene; K31.89 Other diseases of stomach and duodenum; E87.6 Hypokalemia; Z20.822 Contact with and (suspected) exposure to COVID-19; Z66 Do not resuscitate; Z51.5 Encounter for palliative care; Z68.28 Body mass index [BMI] 28.0-28.9, adult; Z95.5 Presence of coronary angioplasty implant and graft; Z79.01 Long term (current) use of anticoagulants; I25.2 Old myocardial infarction; Z79.899 Other long term (current) drug therapy; Z79.82 Long term (current) use of aspirin; Z95.810 Presence of automatic (implantable) cardiac defibrillator
CPT/HCPCS: 10078; 10081; 10203; 62110; 62900; 70005; 85076